=== PATIENT | female | born 1970 | race Caucasian/White ===

== ENCOUNTER → 2018-10-22 12:00 | Outpatient (CLI) | payer OTHER, SELFPAY ==
--- NOTE | 2018-10-22 12:04 | BI_ITS ---
MAMMOGRAPHY - BILATERAL SCREENING REASON FOR EXAM: Female, 48 years old. Routine annual screening examination. PERTINENT HISTORY: Non-contributory. TECHNIQUE: Digital bilateral breast blanco (3D mammographic acquisition) in the CC and MLO projections. 2-D mediolateral oblique (MLO) and craniocaudad (CC) views of both breasts were obtained. CAD: Full Field Digital Mammography with Computer Added Detection was performed. COMPARISON: Comparison is made with prior examination dated May 01, 2010. FINDINGS: Breast Composition: There are scattered areas of fibroglandular density. There are no dominant masses or suspicious calcifications. No other significant abnormalities are identified. There has been no significant change since the prior study. BI/SCREENING MAMM (CAD), BILAT IMPRESSION: Stable bilateral screening mammogram. Yearly follow-up mammogram recommended. (A) ASSESSMENT CATEGORY: BIRADS Category 1: Negative. A letter regarding these results will be sent to the patient by the facility within 30 days. Approximately 10% of breast cancers are not detected by mammography. A normal mammogram should not delay biopsy of a clinically suspicious abnormality. [id number] Electronically Signed: Rosalio Antonio MD at 13:21 EST Tel [phone], Service support ,
--- OUTSIDE RECORDS SUMMARY | 2018-12-17 10:53 | XMS RPT_ITS ---
:1970 Author Organization OHIP Care Team Providers Name Role Phone WILBERT HARRISON DO Primary Care Unavailable WILBERT HARRISON DO Attending Unavailable Teodora Dawson Attending Unavailable Oli Seo Attending Unavailable Wilbert Harrison Referring Unavailable Wilbert Harrison Primary Care Unavailable Wilbert Harrison Attending Unavailable Wilbert Harrison Primary Care Unavailable PROBLEMS PROBLEMS DATE TYPE CONDITION / CODE ATTENDING STATUS SOURCE 07/13/2018 Admitting HyperlipidemiaWILDA DO Active [facility] Diagnosis unspecified / WILBERT Hoyt E78.5(ICD-10) Repository 05/10/2018 Unknown E78.5 - Oli Seo Active [facility] Hyper[facility], Community unspecified / Hospital E78.5(ICD-10) Repository 05/10/2018 Unknown Q21.1 - Atrial MoodispaOli smallwood Active [facility] septal defect / Community Q21.1(ICD-10) Hospital Repository 05/10/2018 Unknown I49.9 - Cardiac Moodispaselin, Oli Active [facility] arrhythmia, Community unspecified / Hospital I49.9(ICD-10) Repository PROCEDURES PROCEDURES No Procedure Records FoundRESULTS RESULTS SCREENING MAMM (CAD), Observed: 10/22/2018 Status: F Source: [facility] BILAT 12:04 PM [facility] REPOSITORY [facility] Imaging Services [address] [place] [address] SCREENING MAMM (CAD), BILAT MR#: [id number] Acct: [id number] Name: MELANY HOLCOMB Rep #: [id number] : 1970 F 48 From: Rosalio Antonio MD PCP: Wilbert Harrison DO Status: REG CLI Study: SCREENING MAMM (CAD), BILAT Date of Exam: 10/22/18 Exam# [id number] Ordering Dr: Wilbert Harrison MD MAMMOGRAPHY - BILATERAL SCREENING REASON FOR EXAM: Female, 48 years old. Routine annual screening examination. PERTINENT HISTORY: Non-contributory. TECHNIQUE: Digital bilateral breast blanco (3D mammographic acquisition) in the CC and MLO projections. 2-D mediolateral oblique (MLO) and craniocaudad (CC) views of both breasts were obtained. CAD: Full Field Digital Mammography with Computer Added Detection was performed. COMPARISON: Comparison is made with prior examination dated May 01, 2010. FINDINGS: Breast Composition: There are scattered areas of fibroglandular density. There are no dominant masses or suspicious calcifications. No other significant abnormalities are identified. There has been no significant change since the prior study. BI/SCREENING MAMM (CAD), BILAT IMPRESSION: Stable bilateral screening mammogram. Yearly follow-up mammogram recommended. (A) ASSESSMENT CATEGORY: BIRADS Category 1: Negative. A letter regarding these results will be sent to the patient by the facility within 30 days. Approximately 10% of breast cancers are not detected by mammography. A normal mammogram should not delay biopsy of a clinically suspicious abnormality. [id number] Electronically Signed: Rosalio Antonio MD at 13:21 EST Tel [phone], Service support , CC: Wilbert Harrison DO Drug Safety Scientist: Signed LIPID Collected: 07/13/2018 Status: F Source: [address] 9:10 AM [facility] REPOSITORY TYPE CODE TESTS RESULT OUT OF REFERENCE UNITS RANGE LAB CHOL(LOINC 0-200 mg/dL ) Cholesterol High 225 Result Comment: Cholesterol Reference Interval: Less than 200 Desirable 200-239 Borderline high risk 240 and above High risk LAB TRIG(LOINC) 0-150 mg/dL Triglycerides High 170 Result Comment: Triglyceride Reference Interval: Less than 150 Normal 150-199 Borderline high risk 200-499 High risk 500 or higher Very high risk LAB HD(LOINC) 40-60 mg/dL HDL Cholesterol 52 LAB LDL(LOINC) 0-130 mg/dL LDL High Cholesterol 139 Performed By: #### CMP, LIPID, GFR #### [place] [address] CMP Collected: 07/13/2018 Status: F Source: [facility] 9:10 AM [facility] REPOSITORY TYPE CODE TESTS RESULT OUT OF REFERENCE UNITS RANGE LAB GLU(LOINC) 70-105 mg/dL Glucose Level 89 LAB NA(LOINC) 136-145 mmol/L Sodium Level 141 LAB K(LOINC) 3.5-5.1 mmol/L Potassium Level 4.5 LAB CL(LOINC) 98-107 mmol/L Chloride 103 LAB CO2(LOINC) 22-29 mmol/L CO2 29 LAB EBAL(LOINC mEq/L ) Electrolyte Balance 9.0 LAB BUN(LOINC) 7-18 mg/dL BUN 12 LAB CRE(LOINC) 0.55-1.02 mg/dL Creatinine Lvl (s) 1.02 LAB BC(LOINC) 7-27 ratio BUN/Creatinine 12 Ratio LAB CA(LOINC) 8.4-10.2 mg/dL Calcium Lvl 9.7 LAB PROT(LOINC 6.4-8.2 G/dL ) Total Protein 7.4 LAB ALB(LOINC) 3.5-5.0 G/dL Albumin Level 4.2 LAB GLB(LOINC) G/dL Globulin 3.2 LAB AG(LOINC) 1.1-2.5 ratio A/G Ratio 1.3 LAB BILT(LOINC 0.2-1.0 mg/dL ) Bili Total 0.6 LAB AP(LOINC) 40-135 U/L Alk Phos 76 LAB AST(LOINC) 10-40 U/L AST/SGOT 19 LAB ALT(LOINC) 10-35 U/L ALT/SGPT 30 Performed By: #### CMP, LIPID, GFR #### [address] [address] .GFR Collected: 07/13/2018 Status: F Source: [facility] 9:10 AM [facility] REPOSITORY TYPE CODE TESTS RESULT OUT OF REFERENCE UNITS RANGE LAB GFRAA(LOINC ml/min/1.73 ) sqm GFR 70 Nauruan Result Comment: GFR Population mean for , Non- Americans Ages 20-29 = 116 mL/min/1.73 sq.m. Ages 30-39 = 107 mL/min/1.73 sq.m. Ages 40-49 = 99 mL/min/1.73 sq.m. Ages 50-59 = 93 mL/min/1.73 sq.m. Ages 60-69 = 85 mL/min/1.73 sq.m. Ages 70+ = 75 mL/min/1.73 sq.m. Chronic Kidney Disease: Less than 60 mL/min/1.73 square meters End Stage Renal Disease: Less than 15 mL/min/1.73 square meters LAB GFRNO(LOINC) ml/min/1.73sqm GFR Non- 58 Result Comment: GFR Population mean for , Non- Americans Ages 20-29 = 116 mL/min/1.73 sq.m. Ages 30-39 = 107 mL/min/1.73 sq.m. Ages 40-49 = 99 mL/min/1.73 sq.m. Ages 50-59 = 93 mL/min/1.73 sq.m. Ages 60-69 = 85 mL/min/1.73 sq.m. Ages 70+ = 75 mL/min/1.73 sq.m. Chronic Kidney Disease: Less than 60 mL/min/1.73 square meters End Stage Renal Disease: Less than 15 mL/min/1.73 square meters Performed By: #### CMP, LIPID, GFR #### [address] [address] CARDIOLOGY VISIT Observed: 05/10/2018 Status: F Source: [facility] REPORT 10:38 AM [facility] REPOSITORY [facility] [address] [place] [address] OFFICE VISIT Date of Service: 05/10/18 MR#: [id number] Acct: [id number] Name: MELANY HOLCOMB Rep #: [id number] : 1970 Provider: Oli Seo MD Age/Sex: 47/F Location: [facility] Status: Signed HPI HPI Details: MELANY HOLCOMB, is a 47 F who presents to the office today for for outpatient cardiovascular follow-up. Since her visit of approximately 1 year ago she has been doing well. She denies any ongoing symptoms of classic angina pectoris or episodes of CHF or pulmonary edema. There has been no palpitations or rapid rates. There has been no near syncope or syncope. She has not required any additional cardiovascular diagnostic studies. Her last lipid labs were in April 2017. Intake Vital Signs05/10/18 Height 5 ft 1 in 05/10/18 Weight: 147 lb 05/10/18 Body Mass Index (BMI) 27.8 05/10/18 Blood Pressure 106/82 Intake Visit Reasons: 1 Y FU Allergies NAROTICS Adverse Reaction (Uncoded 05/10/18 10:04) Other Medications aspirin 81 mg tablet,delayed release 81 mg PO QDAY 05/06/18 [History Confirmed 05/10/18] dextromethorphan 20 mg-quinidine 10 mg capsule 1 cap PO Q12H 05/06/18 [History Confirmed 05/10/18] spironolactone 50 mg tablet 50 mg PO QDAY 05/06/18 [History Confirmed 05/10/18] PFSH Medical History Patent foramen ovale (Chronic) Cardiac arrhythmia (Acute) Hyperlipidemia (Chronic) CVA (cerebral vascular accident) (Acute) Syncope (Acute) Atrial septal defect (Inactive) Surgical History History of cholecystectomy (Resolved) Family History Father Diabetes Hypertension Social History Smoking Status: Former smoker ROS Const Const: Negative for fatigue, weakness, weight gain, weight loss, frequent falls or excessive sweating Eyes Eyes: Negative for change in vision, blurry vision or transient loss of vision ENT ENT: Positive for balance problems (from previous stroke); negative for dizziness Cardio Chest Pain: No Palpitations: No Edema: None Muscle aches with walking: None Resp Respiratory: Negative for SOB with activity or SOB at rest GI GI: Negative vomiting or vomiting blood/hematemesis : Negative for hematuria Musc Musc: Positive for balance problems (from previous stroke); negative for muscle aches/ myalgia, muscle weakness or joint pain Skin Skin: Negative non-healing lesions or rash Neuro Neuro: Negative for weakness, blurry vision, dizziness, lightheadedness, frequent falls or orthostatic symptoms Filiberto Hematologic/Lymphatic: Negative for easy bleeding Endo Endo: Negative for fatigue or excessive sweating Psych Psych: Negative for anxiety or depression Allergy Allergy/Immunology: Negative for hives, Negative for rash Cardiology Exam Const Appearance: cooperative, healthy appearing, comfortable, no acute distress, well developed and well groomed Nutritional Appearance: average body habitus Orientation: awake and oriented x3 Head Head: normal to inspection Ears: hearing grossly normal bilaterally Nose: external nose normal Face and Sinus: face symmetric Mouth: oral mucosae normal Teeth and gingiva: fair dentition Eyes Eyelids: eyelids normal Conjunctivae: conjunctivae normal Neck Neck: normal visual inspection and full ROM Carotids: normal carotid upstroke Chest Chest inspection: normal inspection of the chest and symmetric chest movement Auscultation: Bilateral: Clear to Auscultation Cardio Palpation: normal PMI Rhythm: regular rhythm Heart sounds: S1 normal and S2 normal GI GI: normal to inspection, bowel sounds present, soft and no hepatosplenomegaly Neuro General: alert, awake, oriented x3 and moves all extremities Skin Skin: no rashes or lesions noted Extremities Pulses: Normal: Right Radial Pulse, Left Radial Pulse Lower Extremity Edema: None: Bilateral Psych Psychological: normal affect Supplemental Info Echocardiogram from 05/24/2013: InterpretatijMrnary The study was technically difficult. Left ventricular systolic function is hyperdynamic. The estimated ejection fraction is 75 %. Trivial mitral valve insufficiency, Positive agitated saline contrast study for a nght to left interatrial shunt clw a PFO vs. ASD. No obvious intracardiac mass lesion I thrombus identified. Consider further evaluation for cardiac source of embolus with DANIEL if clinically indicated. Echocardiogram from 05/30/2013: Interpretation Summary Normal LV size. Left ventricular systolic function is normal. The estimated ejection fraction is 65 %. No regional wall motion abnormalities noted Transesophageal echocardiogram 05/25/2013: Normal LV size. Left ventricular systolic function is normal. The estimated election fraction is 60 %. No thrombus is detected in the left atrial appendage. [facility] cerebral angiogram 02/27/2014: IMPRESSION: 1. There is a 65 Io stenosis of the proximal internal carotid artery with a 1.61 mm residual lumen over a 2.0 mm length. 2. 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 3. 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 The ieft AICA/PICA is overall diminished in size. Event monitor 07/03/2013: During the 30 day monitoring period the basic rhythm was SInUS arrhythmia with an intermittent wandering pacemaker with rates from 62-92 bpm. One Pac was noted. Rare PVC s were noted. Patient symptoms of Dizziness/Lightheaded correlated with Sinus bradyarrhythmia and Sinus arrhythmia with a wandering pacemaker. Assessment AND Plan 1. Patent foramen ovale Q21.1 Plan She does have a history of a PFO. She appears to be without any acute cardiovascular issues or concerns at this time. She is going to continue her current medical management and follow-up. 2. Cardiac arrhythmia I49.9 Plan She does have a history of concerns of previous cardiac dysrhythmia with a wondering atrial pacemaker/ectopic atrial rhythm as well as an episode of an idioventricular rhythm. She has been evaluated in the past as noted above. She continues to be followed. She has had no acute events. 3. Hyperlipidemia E78.5 Plan Her lipid history was reviewed. She will be scheduled for future upcoming lipid labs. Orders Orders: Plan Detail Additional Comments Otherwise she will be scheduled for an outpatient visit approximately 1 year unless needed sooner. Thank you for allowing me to participate in the care of your patient. Please don't hesitate to call if any issues arise. This note was generated using a voice recognition system and there may be incorrect words, spelling or punctuation that were not noted when reviewing the office note prior to saving. Follow Up 1 Year (PF) Coding Level of Care Code Off vis,est,level 4 Diagnoses Patent foramen ovale Q21.1 Cardiac arrhythmia I49.9 Hyperlipidemia E78.5 Coding Level of Care Code Off vis,est,level 4 Diagnoses Patent foramen ovale Q21.1 Cardiac arrhythmia I49.9 Hyperlipidemia E78.5 06/18/18 1038 <Electronically signed by Oli Seo MD> Date Oli Seo MD Cosigner Signature: Date (if applicable) CC: Wilbert Harrison DO ALLERGIES ALLERGIES DATE TYPE / CODE NAME / CODE REACTION SEVERITY SOURCE 05/10/2018 Miscellaneous NAROTICS Other Unknown [facility]/[id number]([facility] [place]) Hospital Repository ENCOUNTERS ENCOUNTERS ADMIT/DISCHARGE ACCOUNT NUMBER ADMITTING ENCOUNTER LOCATION SOURCE CLASS 10/22/2018 [id number] [facility] Rep[facility] 07/13/2018/07/17/20 [id number] Ambulatory [address] ding:DROP [facility] Repository 05/10/2018/05/10/20 [id number] Ambulatory BMSBuilding: [facility] 18 [facility] Repository 05/06/2018 [id number] Ambulatory BMSBuilding: [facility] Repository PAYERS PAYERS ENCOUNTER GUARANTOR PAYER SUBSCRIBER SOURCE 10/22/2018 MELANY Wright [id number] Insurance:MEDICAL [place] [id number] Number: Repository [id number]: [phone] [id number] [phone] () Date:[id number] [id number]: 10/22/2018 Secondary NOT GIVENUNK [facility] Insurance:SELF PAY [facility] Number: Effective Repository Date:2018-09-10 07/13/2018 [facility]:MEDICAL JRDOB: [facility] [address] [id number] Repository [place] Number: [facility] [place] [id number] [facility] [place] [address]Pxa: [phone]) Date:2018-07-13 [id number]: () [id number] [phone] Name:HIRAM CRYSTAL ()Tel: [phone], [place] [address] () [id number]: 05/10/2018 MELANY WILKES Primary LAUREN Wright [address] [place] Insurance[facility] [id number] Hospital [address]Msq: [phone]) Number: Repository [phone] () [id number] Date:1144-83-25GR [address] [place] [id number]: 05/10/2018 Secondary NOT GIVENUNK [facility] Insurance:SELF PAY [facility] Number: Effective Repository Date:2017-11-12 05/06/2018 Melany Quintero24 Primary LAUREN [address] [place] Insurance:[facility]ICAL [facility] [place] [id number] Hospital [address]Zph: [phone]) Number: Repository [phone] () [id number] Date:[id number] [phone]: 05/06/2018 Secondary NOT GIVENUNK [facility] Insurance:SELF PAY [facility] Number: Effective Repository Date:2018-05-06
== END ==
PROVIDERS: Family Provider Family Medicine; PCP Family Medicine; Visit Provider Family Medicine
DX: Z12.31 Encounter for screening mammogram for malignant neoplasm of breast (principal)
CPT/HCPCS: 77063; 77067

== ENCOUNTER → 2019-10-25 09:18 | Outpatient (CLI) | payer OTHER, SELFPAY ==
[2019-06-08 15:37] VITALS: BMI 28.1
--- NOTE | 2019-10-25 09:20 | BI_ITS ---
MAMMOGRAPHY - BILATERAL SCREENING REASON FOR EXAM: Female, 49 years old. Routine annual screening examination. PERTINENT HISTORY: Non-contributory. TECHNIQUE: Digital bilateral breast shay (3D mammographic acquisition) in the CC and MLO projections. 2-D mediolateral oblique (MLO) and craniocaudad (CC) views of both breasts were obtained. CAD: Full Field Digital Mammography with Computer Added Detection was performed. COMPARISON: Comparison is made with prior study dated October 22, 2018 and May 09, 2010. FINDINGS: Breast Composition: There are scattered areas of fibroglandular density. There are no dominant masses or suspicious calcifications. No other significant abnormalities are identified. There has been no significant change since the prior study. BI/SCREEN MAMM (CAD) W/SHAY BILAT IMPRESSION: Stable bilateral screening mammogram. Yearly follow-up mammogram recommended. (A) ASSESSMENT CATEGORY: BIRADS Category 1: Negative. A letter regarding these results will be sent to the patient by the facility within 30 days. Approximately 10% of breast cancers are not detected by mammography. A normal mammogram should not delay biopsy of a clinically suspicious abnormality. [id number] Electronically Signed: Rosalio Antonio, at 10:57 EST , Service support ,
== END ==
PROVIDERS: Family Provider Family Medicine; PCP Family Medicine; Referring Provider Family Medicine; Visit Provider Family Medicine
DX: Z12.31 Encounter for screening mammogram for malignant neoplasm of breast (principal)
CPT/HCPCS: 77063; 77067

== ENCOUNTER → 2021-02-20 11:14 | Outpatient (CLI) | payer OTHER, SELFPAY ==
[2020-06-11 14:45] VITALS: BMI 28.7
--- NOTE | 2021-02-20 11:17 | BI_ITS ---
MAMMOGRAPHY - BILATERAL SCREENING REASON FOR EXAM: Female, 50 years old. Routine annual screening examination. PERTINENT HISTORY: Non-contributory. TECHNIQUE: Digital bilateral breast shay (3D mammographic acquisition) in the CC and MLO projections. 2-D mediolateral oblique (MLO) and craniocaudad (CC) views of both breasts were obtained. CAD: Full Field Digital Mammography with Computer Added Detection was performed. COMPARISON: Comparison is made with prior study dated 10/25/2019 and 10/22/2018. FINDINGS: Breast Composition: There are scattered areas of fibroglandular density. There are no dominant masses or suspicious calcifications. No other significant abnormalities are identified. There has been no significant change since the prior study. BI/SCRN MAMM (CAD)W/SHAY BILAT IMPRESSION: Stable bilateral screening mammogram. Yearly follow-up mammogram recommended. (A) ASSESSMENT CATEGORY: BIRADS Category 1: Negative. A letter regarding these results will be sent to the patient by the facility within 30 days. Approximately 10% of breast cancers are not detected by mammography. A normal mammogram should not delay biopsy of a clinically suspicious abnormality. [id number] Electronically Signed: Rosalio Antonio MD at 12:45 EDT , Service support ,
== END ==
PROVIDERS: PCP Family Medicine; Referring Provider Family Medicine; Visit Provider Family Medicine
DX: Z00.00 Encounter for general adult medical examination without abnormal findings (principal); Z12.31 Encounter for screening mammogram for malignant neoplasm of breast
CPT/HCPCS: 77063; 77067

== ENCOUNTER 2025-11-16 04:01 | Emergency (ER) | payer OTHER, SELFPAY ==
[2025-11-16 04:04] VITALS: BP 109/66; PULSE 82; RESP 14; TEMP 36.6; O2SAT 97; BMI 28.4
--- OUTSIDE RECORDS SUMMARY | 2025-11-16 04:28 | XMS RPT_ITS | CCD ---
Author Organization [facility] Care Team Providers Care [place] Cleaner Name Role Phone DeFinis, Harumi Y Unavailable Unavailable SHARON DANIELHAMMAD S Unavailable Unavailable AURY JEFFERS ([facility]) Unavailable Unavailable JORGE DANIEL S Unavailable Unavailable Oli Seo MD Unavailable Mihir Elkins Unavailable Unavailable WILBERT JAIN DO Primary Care Physician [phone] Wilbert Jain Referring Unavailable Wilbert Jain Primary Care Unavailable Oli Seo Unavailable WILBERT JAIN DO Primary Care Unavailable WILBERT JAIN DO Attending Unavailable WILBERT JAIN DO Attending Unavailable WILBERT JAIN DO Primary Care Unavailable WILBERT JAIN DO Primary Care Physician WILBERT JAIN DO Attending Unavailable WILBERT JAIN DO Primary Care Unavailable WILBERT JAIN DO Primary Care Unavailable WILBERT JAIN DO Attending Unavailable Allergies Allergy Classification Reported Allergen(s) Allergy Type Date of Onset Reaction(s) Facility (8 sources) meperidine; Translations: [Meperidine] drug allergy 3 Nausea (finding) [facility] Work Phone: (1 source) Acetaminophen / HYDROcodone; Translations: [HYDROCODONE-ACET AMINOPHEN] Drug Allergy 3 [facility] Repository (1 source) Acetaminophen / oxyCODONE; Translations: [OXYCODONE-ACETAM INOPHEN] Drug Allergy 3 [facility] Repository (1 source) Meperidine; Translations: [MEPERIDINE (PF)] Drug Allergy 6 [facility] Repository (1 source) NAROTICS; Translations: [NAROTICS] Propensity to adverse reactions (disorder) 1 [facility] Repository Medications Current Medications Medication Drug Class(es) Dates Sig (Normalized) Sig (Original) aspirin 81 mg chewable tablet (14 sources) Platelet Aggregation Inhibitor, Nonsteroidal Anti-inflammatory Drug Start: 10-08-2023 aspirin 81 mg oral tablet, chewable Dose : 81 mg = 1 tab(s), Oral, qDay, # 90 tab(s), 3 Refill(s), Pharmacy: [id number], CVA (cerebrovascular accident), 155.7, cm, 10/08/23 10:02:00 EST, Height, kg, 10/08/23 10:02:00 EST, Dosing Weight Start Date: 10/08/23 Status: Ordered Quantity: 90.0 Unit: tab(s) Repeat number: 4 Indication: Cerebral infarction, unspecified Start: 03-12-2022 aspirin 81 mg oral tablet, chewable Dose : 81 mg = 1 tab(s), Oral, Daily, # 30 tab(s), 0 Refill(s) Start Date: 03/12/22 Status: Ordered Start: 04-26-2014 take 1 tablet by naida th once daily ASPIRIN 325 MG TABS One tablet by mouth daily ASPIRIN [id number] Oli Seo MD Start: 04-26-2014 take 1 tablet by naida th once daily ASPIRIN 81 MG TABS One tablet by mouth daily ASPIRIN [id number] Oli Seo MD Start: 04-26-2014 take 1 tablet by naida th once daily ASPIRIN 81 MG TABS One tablet by mouth daily ASPIRIN [id number] Oli Seo MD Start: 04-26-2014 take 1 tablet by naida th once daily ASPIRIN EC 81 MG TBEC One tablet by mouth daily ASPIRIN [id number] Mihir Elkins dextromethorphan hydrobromide 20 mg / quiNIDine sulfate 10 mg oral capsule (8 sources) Antiarrhythmic, Uncompetitive V-ccikrq-S-aspartate Receptor Antagonist, Cytochrome P450 2D6 Inhibitor, Sigma-1 Agonist Start: 11-30-2024 End: 11-25-2025 take 1 capsule by mouth three times daily, then take 1 capsule by mouth three times daily Nuedexta 20 mg-10 mg oral capsule Dose = 1 cap(s), Oral, TID, TAKE 1 CAPSULE BY MOUTH THREE TIMES A DAY - medically necessary only medication for pseudobulbar affect, # 90 cap(s), 11 Refill(s), Pharmacy: [id number], Pseudobulbar affect, 156, cm, 11/30/24 10:46:00 EST, Height, kg, 11/30/24 10:46:00 EST, Dosing Weight Start Date: 11/30/24 Stop Date: 11/25/25 Status: Ordered Quantity: 90.0 Unit: cap(s) Repeat number: 12 Indication: Pseudobulbar affect Start: 09-25-2022 End: 09-20-2023 take 1 capsule by mouth three times daily, then take 1 capsule by mouth three times daily Nuedexta 20 mg-10 mg oral capsule Dose = 1 cap(s), Oral, TID, TAKE 1 CAPSULE BY MOUTH THREE TIMES A DAY - medically necessary only medication for pseudobulbar affect, # 90 cap(s), 11 Refill(s), Pharmacy: [facility]/pharmacy #[id number], Pseudobulbar affect, 157.5, cm, 09/25/22 9:02:00 EDT, Height,... Start Date: 09/25/22 Stop Date: 09/20/23 Status: Ordered Start: 09-18-2021 End: 09-13-2022 take 1 capsule by mouth three times daily, then take 1 capsule by mouth three times daily Nuedexta 20 mg-10 mg oral capsule Dose = 1 cap(s), Oral, TID, TAKE 1 CAPSULE BY MOUTH THREE TIMES A DAY - medically necessary only medication for pseudobulbar affect, # 90 cap(s), 11 Refill(s), Pharmacy: [facility]/pharmacy #[id number], Pseudobulbar affect, 158.5, cm, 09/18/21 13:27:00 EDT, Height... Start Date: 09/18/21 Stop Date: 09/13/22 Status: Ordered Start: 04-26-2014 take 1 tablet by naida twice daily NUEDEXTA CAPS One tablet by mouth twice daily DEXTROMETHORPHAN-QUINIDINE CAPS [id number] Oli Seo MD levothyroxine sodium 0.025 mg oral tablet (2 sources) l-Thyroxine Start: 02-27-2021 levothyroxine 25 mcg (0.025 mg) oral tablet Dose : 25 mcg = 1 tab(s), Oral, qDay, # 90 tab(s), 3 Refill(s), Pharmacy: [facility]/pharmacy #[id number], Hypothyroidism, 157, cm, 12/12/20 13:40:00 EST, Height, kg, 12/12/20 13:40:00 EST, Dosing Weight Start Date: 02/27/21 Status: Ordered rOPINIRole 0.25 mg oral tablet (3 sources) Nonergot Dopamine Agonist Start: 03-12-2022 rOPINIRole 0.25 mg o ral tablet Dose : 0.25 mg = 1 tab(s), Oral, TID, # 90 tab(s), 1 Refill(s), [id number], Spasticity due to old stroke, 156.5, cm, 03/12/22 13:50:00 EDT, Height Start Date: 03/12/22 Status: Ordered rosuvastatin calcium 10 mg oral tablet (5 sources) HMG-CoA Reductase Inhibitor Start: 11-30-2024 rosuvastatin 10 mg o ral tablet Dose : 10 mg = 1 tab(s), Oral, qDay, TAKE 1 TABLET BY MOUTH EVERYDAY AT BEDTIME, # 100 tab(s), 1 Refill(s), Pharmacy: [facility] #[id number], Hyperlipidemia, 156, cm, 11/30/24 10:46:00 EST, Height, kg, 11/30/24 10:46:00 EST, Dosing Weight Start Date: 11/30/24 Status: Ordered Quantity: 100.0 Unit: tab(s) Repeat number: 2 Indication: Hyperlipidemia, unspecified Start: 03-12-2022 rosuvastatin 1 0 mg oral tablet Dose : 10 mg = 1 tab(s), Oral, qDay, TAKE 1 TABLET BY MOUTH EVERYDAY AT BEDTIME, # 90 tab(s), 3 Refill(s), Pharmacy: [facility]/pharmacy #[id number], Hyperlipidemia, 156.5, cm, 03/12/22 13:50:00 EDT, Height, kg, 03/12/22 13:50:00 EDT, Dosing Weight Start Date: 03/12/22 Status: Ordered spironolactone 50 mg oral tablet (8 sources) Aldosterone Antagonist Start: 11-30-2024 spironolactone 50 mg oral tablet Dose : 50 mg = 1 tab(s), Oral, Daily, # 90 tab(s), 1 Refill(s), Pharmacy: [id number], Bilateral lower extremity edema, 156, cm, 11/30/24 10:46:00 EST, Height, kg, 11/30/24 10:46:00 EST, Dosing Weight Start Date: 11/30/24 Status: Ordered Quantity: 90.0 Unit: tab(s) Repeat number: 2 Indication: Localized edema Start: 03-12-2022 spironolactone 50 mg oral tablet Dose : 50 mg = 1 tab(s), Oral, Daily, # 90 tab(s), 3 Refill(s), Pharmacy: [facility]/pharmacy #[id number], 156.5, cm, 03/12/22 13:50:00 EDT, Height, kg, 03/12/22 13:50:00 EDT, Dosing Weight Start Date: 03/12/22 Status: Ordered Start: 05-02-2015 take 1 tablet by naida th once daily SPIRONOLACTONE 50 MG TABS One tablet by mouth daily SPIRONOLACTONE [id number] Oli Seo MD Vitamin D2 1.25 mg (50,000 intl units) oral capsule (3 sources) Start: 03-12-2022 End: 03-07-2023 Vitamin D2 1.25 mg (50,000 i ntl units) oral capsule Dose : 50,000 International_Unit = 1 cap(s), Oral, qWeek, # 13 cap(s), 3 Refill(s), Pharmacy: [facility]/pharmacy #[id number], Vitamin D deficiency, 156.5, cm, 03/12/22 13:50:00 EDT, Height, kg, 03/12/22 13:50:00 EDT, Dosing Weight Start Date: 03/12/22 Stop Date: 03/07/23 Status: Ordered Completed/Discontinued Medications Medication Drug Class(es) Dates Sig (Normalized) Sig (Original) atorvastatin 20 mg oral tablet (12 sources) HMG-CoA Reductase Inhibitor Start: 07-06-2013 End: 05-11-2017 take 1 tablet by mouth every other day ATORVASTATIN CALCIUM 20 MG TABS One tablet by mouth every other day ATORVASTATIN CALCIUM [id number] Oli Seo MD Start: 07-06-2013 take 1 tablet by naida once daily ATORVASTATIN CALCIUM 40 MG TABS One tablet by mouth daily ATORVASTATIN CALCIUM [id number] Teodora Pearl PA-C citalopram 10 mg oral tablet (6 sources) Serotonin Reuptake Inhibitor Start: 07-06-2013 End: 11-03-2013 take 1 tablet by mouth once daily CITALOPRAM HYDROBROMIDE 10 MG TABS One tablet by mouth daily CITALOPRAM HYDROBROMIDE [id number] Yasmine Randolph RN pantoprazole 20 mg delayed release oral tablet (6 sources) Proton Pump Inhibitor Start: 07-06-2013 End: 05-02-2015 take 1 tablet by mouth once daily PROTONIX 20 MG TBEC One tablet by mouth daily PANTOPRAZOLE SODIUM [id number] Oli Seo MD pregabalin 50 mg oral capsule (6 sources) Start: 07-06-2013 End: 04-26-2014 take 1 tablet by mouth three times daily LYRICA 50 MG CAPS One tablet by mouth three times daily PREGABALIN [id number] Yasmine Randolph RN vitamin b12 1 mg/ml injectable solution (1 source) Vitamin B12 Start: 03-20-2022 inject 1 mL by intramuscular injection every month cyanocobalamin 1000 mcg/mL injectable solution Dose : 1,000 mcg = 1 mL, Intramuscular, qmonth, to be given IN PCP OFFICE every month - standing order, not sent in., # 1 mL, 11 Refill(s), other reason (Rx), Vitamin B 12 deficiency Fatigue Start Date: 03/20/22 Status: Ordered warfarin sodium 2.5 mg oral tablet (20 sources) Vitamin K Antagonist Start: 12-30-2013 End: 04-26-2014 COUMADIN 2 MG TABS 5 mg x 5 days, 4.5 mg x 2 days (patient uses 2.5 and 2 mg tablets to achieve dosing) WARFARIN SODIUM [id number] Oli Seo MD Start: 12-30-2013 End: 04-26-2014 COUMADIN 2.5 MG TABS 5 mg x 5 days, 4.5 mg x 2 days (patient uses 2.5 and 2 mg tablets to achieve dosing) WARFARIN SODIUM [id number] Oli Seo MD Start: 07-11-2013 COUMADIN 2.5 M G TABS Take as directed - current dose 4.5 mg x 4 days, 4 mg x 3 days WARFARIN SODIUM [id number] Yasmine Randolph RN Start: 07-06-2013 COUMADIN 2 MG TABS Take as directed WARFARIN SODIUM [id number] Yasmine Randolph RN Start: 07-06-2013 COUMADIN 2.5 M G TABS Take as directed - current dose 4.5 mg daily WARFARIN SODIUM [id number] Yasmine Randolph RN Problems Active Problems Problem Classification Problem Date Documented Date Episodic/Chronic Acute cerebrovascular disease (5 sources) Cerebrovascular accident; Translations: [Cerebral infarction, unspecified] Onset: 07-06-2013 07-06-2013 Chronic Aortic; peripheral; and visceral artery aneurysms (2 sources) 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 Cardiac and circulatory congenital anomalies (5 sources) Atrial septal defect; Translations: [Patent foramen ovale] Onset: 07-06-2013 07-06-2013 Chronic Conduction disorders (3 sources) Conduction disorder of the heart; Translations: [Cardiac arrhythmia, unspecified] Onset: 07-06-2013 07-06-2013 Chronic Delirium, dementia, and amnestic and other cognitive disorders (5 sources) Pseudobulbar affect 01-31-2020 Chronic Disorders of lipid metabolism (8 sources) Hyperlipidemia; Translations: [Hyperlipidemia, unspecified] Onset: 11-03-2013 11-03-2013 Chronic Late effects of cerebrovascular disease (5 sources) Spasticity as sequela of stroke 03-12-2022 Chronic Malaise and fatigue (5 sources) Fatigue 01-31-2020 Episodic Nutritional deficiencies (5 sources) Vitamin D deficiency 01-31-2020 Chronic Occlusion or stenosis of precerebral arteries (1 source) Occlusion and stenosis of unspecified carotid artery; Translations: [Occlusion and stenosis of unspecified carotid artery] Onset: 05-10-2015 Chronic Other circulatory disease (2 sources) History of cerebrovascular accident with residual deficit 11-30-2024 Episodic Other circulatory disease (2 sources) History of dissection of carotid artery 11-30-2024 Episodic Other connective tissue disease (5 sources) Muscle weakness 12-02-2019 Episodic Other female genital disorders (2 sources) Vaginal dryness 04-07-2023 Episodic Other non-traumatic joint disorders (5 sources) Multiple joint pain 12-12-2020 Episodic Other nutritional; endocrine; and metabolic disorders (4 sources) Body mass index (BMI) 31.0-31.9, adult; Translations: [Body mass index (BMI) 30.0-30.9, adult] Onset: 11-03-2013 11-03-2013 Chronic Other nutritional; endocrine; and metabolic disorders (2 sources) Body mass index (BMI) 30.0-30.9, adult; Translations: [Body mass index (BMI) 30.0-30.9, adult] Onset: 11-03-2013 05-02-2015 Chronic Other nutritional; endocrine; and metabolic disorders (2 sources) Overweight in adulthood with body mass index of 25 or more but less than 30 11-30-2024 Episodic Other screening for suspected conditions (not mental disorders or infectious disease) (7 sources) Viral screening status; Translations: [Encounter for screening mammogram for malignant neoplasm of breast] Onset: 10-28-2023 03-12-2022 Episodic Residual codes; unclassified (5 sources) Needs influenza immunization 09-14-2020 Episodic Residual codes; unclassified (5 sources) Requires diphtheria, tetanus and pertussis vaccination 08-17-2019 Episodic Residual codes; unclassified (2 sources) Bilateral lower limb edema 04-07-2023 Episodic Residual codes; unclassified (2 sources) Insomnia 04-07-2023 Episodic Residual codes; unclassified (2 sources) Screening due 10-08-2023 Episodic Screening and history of mental health and substance abuse codes (2 sources) Ex-tobacco user 04-06-2023 Episodic Thyroid disorders (3 sources) Hypothyroidism 01-31-2020 Chronic Unclassified (3 sources) Long-term drug therapy; Translations: [Long-term (current) use of other medications] Onset: 12-13-2013 12-13-2013 Unclassified (5 sources) Cancer cervix screening status 09-14-2020 Unclassified (20 sources) Patient encounter status 08-17-2019 Past or Other Problems Problem Classification Problem Date Documented Da te Episodic/Chronic Other aftercare (2 sources) Other rn long term care (current) drug therapy; Translations: [Long-term (current) use of other medications] Onset: 12-13-2013 05-13-2017 Episodic Other nutritional; endocrine; and metabolic disorders (6 sources) Body mass index (BMI) 29.0-29.9, adult; Translations: [Body mass index (BMI) 27.0-27.9, adult] Onset: 11-03-2013 Resolved: 05-11-2017 04-26-2014 Episodic Other nutritional; endocrine; and metabolic disorders (4 sources) Body mass index (BMI) 27.0-27.9, adult; Translations: [Body mass index (BMI) 27.0-27.9, adult] Onset: 11-03-2013 Resolved: 05-11-2017 05-12-2016 Episodic Other nutritional; endocrine; and metabolic disorders (2 sources) Body mass index (BMI) 28.0-28.9, adult; Translations: [Body mass index (BMI) 28.0-28.9, adult] Onset: 05-11-2017 05-11-2017 Episodic Residual codes; unclassified (3 sources) FH: Hypertension; Translations: [Family history of ischemic heart disease and other diseases of the circulatory system] 05-02-2015 Episodic Syncope (3 sources) Syncope; Translations: [Syncope and collapse] Onset: 07-06-2013 07-06-2013 Episodic Results Test Name Value Interpretation Reference Range Facility .GFRon 01-09-2025 Estimated Glomerular Filtration Rate 59 ml/min/1.73sqm Normal [facility] Comment on above: Result Comment: Stages of Chronic Kidney Disease (CKD) Stage Description eGFR(ml/min/1.73 sq.m.) CKD 1 Normal kidney function or >=90 normal kindney function with possible kidney damage (ex. Proteinuria) CKD 2 Kidney damage with mild loss 60-89 of kidney function CKD 3a Mild to moderate loss of kidney 45-59 function CKD 3b Moderate to severe loss of 30-44 of kindey function CKD 4 Severe loss of kidney function 15-29 CKD 5 Kidney failure <15 Note: (go live 2024) the eGFR calculation was updated to the 2020 CKD-EPI creatinine equation without a race factor to calculate the eGFR results. Performed By: #### L IPID, TSH, VIDH, GFR, CMP #### [address] [address] CMPon 01-09-2025 Albumin Level 4.2 G/dL Normal 3.5-5.0 [facility] Comment on above: Performed By: #### L IPID, TSH, VIDH, GFR, CMP #### [address] [address] Albumin/Globulin [Mass ratio] 1.3 {ratio} Normal 1.1-2.5 [facility] Comment on above: Performed By: #### L IPID, TSH, VIDH, GFR, CMP #### [address] [address] ALP [Catalytic activity/Vol] 87 U/L Normal 40-135 [facility] Comment on above: Performed By: #### L IPID, TSH, VIDH, GFR, CMP #### [address] [address] ALT [Catalytic activity/Vol] 35 U/L Normal 14-59 [facility] Comment on above: Performed By: #### L IPID, TSH, VIDH, GFR, CMP #### [address] [address] AST [Catalytic activity/Vol] 19 U/L Normal 10-40 [facility] Comment on above: Performed By: #### L IPID, TSH, VIDH, GFR, CMP #### [address] [address] Bili Total 0.5 mg/dL Normal 0.2-1.0 [facility] Comment on above: Result Comment: Use of this assay is not recommended for patients undergoing treatment with eltrombopag due to the potential for falsely elevated results. Performed By: #### L IPID, TSH, VIDH, GFR, CMP #### [address] [address] BUN/Creatinine Ratio 14 ratio Normal 7-27 [facility] Comment on above: Performed By: #### L IPID, TSH, VIDH, GFR, CMP #### [address] [address] Calcium [Mass/Vol] 9.5 mg/dL Normal 8.4-10.2 [facility] Comment on above: Performed By: #### L IPID, TSH, VIDH, GFR, CMP #### [address] [address] Chloride [Moles/Vol] 102 mmol/L Normal 98-107 [facility] Comment on above: Performed By: #### L IPID, TSH, VIDH, GFR, CMP #### [place] [address] CO2 [Moles/Vol] 29 mmol/L Normal 22-29 [facility] Comment on above: Performed By: #### L IPID, TSH, VIDH, GFR, CMP #### [place] [address] Creatinine [Mass/Vol] 1.10 mg/dL High 0.55-1.02 [facility] Comment on above: Result Comment: Test ing performed on Siemens Dimension EXL analyzer using a modified kinetic Tristan technique. Performed By: #### L IPID, TSH, VIDH, GFR, CMP #### [place] [address] Electrolyte Balance 8.0 mEq/L Normal 4.0-15.0 [facility] Comment on above: Performed By: #### L IPID, TSH, VIDH, GFR, CMP #### [place] [address] Globulin 3.3 G/dL Normal 1.5-3.8 [facility] Comment on above: Performed By: #### L IPID, TSH, VIDH, GFR, CMP #### [place] [address] Glucose [Mass/Vol] 91 mg/dL Normal 70-105 [facility] Comment on above: Performed By: #### L IPID, TSH, VIDH, GFR, CMP #### [address] [address] Potassium [Moles/Vol] 4.1 mmol/L Normal 3.5-5.1 [facility] Comment on above: Performed By: #### L IPID, TSH, VIDH, GFR, CMP #### [address] [address] Sodium [Moles/Vol] 139 mmol/L Normal 136-145 [facility] Comment on above: Performed By: #### L IPID, TSH, VIDH, GFR, CMP #### [address] [address] Total Protein 7.5 G/dL Normal 6.4-8.2 [facility] Comment on above: Performed By: #### L IPID, TSH, VIDH, GFR, CMP #### [address] [address] Urea nitrogen [Mass/Vol] 15 mg/dL Normal 7-18 [facility] Comment on above: Performed By: #### L IPID, TSH, VIDH, GFR, CMP #### [address] [address] LABORATORYOrdered By: SYSTEM SYSTEM on 01-09-2025 25-hydroxyvitamin D3 [Mass/Vol] 31.1 ng/mL Invalid Interpretation Code AO ADM SS Comment on above: Interpretive Data: I nterpretive Values Based on Total 25(OH) Vitamin D: Deficient <20 ng/mL Insufficient 20 - <30 ng/mL Sufficient 30-100 ng/mL Albumin BCP dye [Mass/Vol] 4.2 G/dL Normal 3.5 - 5.0 G/dL AO ADM SS Albumin/Globulin [Mass ratio] 1.3 {ratio} Normal 1.1 - 2.5 ratio AO ADM SS ALP [Catalytic activity/Vol] 87 U/L Normal 40 - 135 U/L AO ADM SS ALT With P-5'-P [Catalytic activity/Vol] 35 U/L Normal 14 - 59 U/L AO ADM SS AST With P-5'-P [Catalytic activity/Vol] 19 U/L Normal 10 - 40 U/L AO ADM SS Bilirubin [Mass/Vol] 0.5 mg/dL Normal 0.2 - 1.0 mg/dL AO ADM SS Comment on above: Interpretive Data: U se of this assay is not recommended for patients undergoing treatment with eltrombopag due to the potential for falsely elevated results. Calcium [Mass/Vol] 9.5 mg/dL Normal 8.4 - 10. 2 mg/dL AO ADM SS Chloride [Moles/Vol] 102 mmol/L Normal 98 - 107 mmol/L AO ADM SS CO2 [Moles/Vol] 29 mmol/L Normal 22 - 29 mmol/L AO ADM SS Creatinine [Mass/Vol] 1.10 mg/dL High 0.55 - 1.02 mg/dL AO ADM SS Comment on above: Interpretive Data: T esting performed on Siemens Dimension EXL analyzer using a modified kinetic Tristan technique. Electrolyte Balance 8.0 mEq/L Normal 4.0 - 15 .0 mEq/L AO ADM SS Estimated Glomerular Filtration Rate 59 ml/min/1.73sqm Invalid Interpretation Code AO Chemistry S Comment on above: Interpretive Data: Stages of Chronic Kidney Disease (CKD) Stage Description eGFR(ml/min/1.73 sq.m.) CKD 1 Normal kidney function or >=90 normal kindney function with possible kidney damage (ex. Proteinuria) CKD 2 Kidney damage with mild loss 60-89 of kidney function CKD 3a Mild to moderate loss of kidney 45-59 function CKD 3b Moderate to severe loss of 30-44 of kindey function CKD 4 Severe loss of kidney function 15-29 CKD 5 Kidney failure <15 Note: (go live 2024) the eGFR calculation was updated to the 2020 CKD-EPI creatinine equation without a race factor to calculate the eGFR results. Globulin 3.3 G/dL Normal 1.5 - 3.8 G/dL AO ADM SS Glucose [Mass/Vol] 91 mg/dL Normal 70 - 105 mg/dL AO ADM SS Potassium [Moles/Vol] 4.1 mmol/L Normal 3.5 - 5.1 mmol/L AO ADM SS Protein [Mass/Vol] 7.5 G/dL Normal 6.4 - 8.2 G/dL AO ADM SS Sodium [Moles/Vol] 139 mmol/L Normal 136 - 145 mmol/L AO ADM SS TSH Qn 2.18 m[IU]/L Normal 0.36 - 3.74 mcIU/mL AO ADM SS Urea nitrogen [Mass/Vol] 15 mg/dL Normal 7 - 18 mg/dL AO ADM SS Urea nitrogen/Creatinine [Mass ratio] 14 ratio Normal 7 - 27 ratio AO ADM SS LABORATORYOrdered By: Graham Brown on 01-09-2025 Cholesterol [Mass/Vol] 174 mg/dL Normal 0 - 200 mg/dL AO ADM SS Comment on above: Interpretive Data: C holesterol Reference Interval: Less than 200 Desirable 200-239 Borderline high risk 240 and above High risk Cholesterol in HDL [Mass/Vol] 62 mg/dL High 40 - 60 mg/dL AO ADM SS Cholesterol in LDL [Mass/Vol] 85 mg/dL Normal 0 - 130 mg/dL AO ADM SS Triglyceride [Mass/Vol] 137 mg/dL Normal 0 - 150 mg/dL AO ADM SS Comment on above: Interpretive Data: T riglyceride Reference Interval: Less than 150 Normal 150-199 Borderline high risk 200-499 High risk 500 or higher Very high risk LIPIDon 01-09-2025 Cholesterol [Mass/Vol] 174 mg/dL Normal 0-200 [facility] Comment on above: Result Comment: Chol esterol Reference Interval: Less than 200 Desirable 200-239 Borderline high risk 240 and above High risk Performed By: #### L IPID, TSH, VIDH, GFR, CMP #### [address] [address] Cholesterol in HDL [Mass/Vol] 62 mg/dL High 40-60 [facility] Comment on above: Performed By: #### L IPID, TSH, VIDH, GFR, CMP #### [address] [address] Cholesterol in LDL [Mass/Vol] 85 mg/dL Normal 0-130 [facility] Comment on above: Performed By: #### L IPID, TSH, VIDH, GFR, CMP #### [address] [address] Triglyceride [Mass/Vol] 137 mg/dL Normal 0-150 [facility] Comment on above: Result Comment: Trig lyceride Reference Interval: Less than 150 Normal 150-199 Borderline high risk 200-499 High risk 500 or higher Very high risk Performed By: #### L IPID, TSH, VIDH, GFR, CMP #### [place] [address] [place], [place] [address] TSHon 01-09-2025 TSH Qn 2.18 m[IU]/L Normal 0.36-3.74 [facility] Comment on above: Performed By: #### L IPID, TSH, VIDH, GFR, CMP #### [address] [address] VIDHon 01-09-2025 Vit. D 25-Hydroxy 31.1 ng/mL Normal [facility] Comment on above: Result Comment: Inte rpretive Values Based on Total 25(OH) Vitamin D: Deficient <20 ng/mL Insufficient 20 - <30 ng/mL Sufficient 30-100 ng/mL Performed By: #### L IPID, TSH, VIDH, GFR, CMP #### [address] [address] [place] MAMMOGRAM SCREENING BILAT ERAL W/TOMOon 12-14-2024 MA MAMMOGRAM SCREENING BILATERAL W/COSMO ORIGINAL FROM: [address] [address] PROCEDURE FOR: MELANY HOLCOMB [address] [place] [id number] Home: PID#: [id number] Exam#: [id number] : 1970 Age: 54 TO: WILBERT JAIN DO [address] [place] [address] Fax: NO FAX EXAMINATION: SCREENING DIGITAL BILATERAL MAMMOGRAM WITH TOMOSYNTHESIS, 12/14/2024 11:23 am TECHNIQUE: Screening mammography of the bilateral breasts was performed with tomosynthesis. 2D standard and 3D tomosynthesis combination imaging performed through both breasts in the MLO and CC projection. Computer aided detection was utilized in the interpretation of this exam. COMPARISON: 10/28/2023 HISTORY: Breast cancer screening. FINDINGS: BREAST DENSITY: There are scattered areas of fibroglandular density. There is a benign left breast calcification. There are no significant masses or calcifications. IMPRESSION: No mammographic evidence of malignancy. Continued screening with annual mammograms is recommended. Kayla Urena risk calculations, generated with the history provided, report this patient's 10 year risk and lifetime risk for developing breast cancer at 0.9% and 3.0%, respectively. Based on this assessment tool, if the patient's calculated lifetime risk is below 20%, then the patient is considered at average risk for developing breast cancer. If the patient's calculated lifetime risk is at or above 20%, then the patient is considered high risk for developing breast cancer and may be a candidate for supplemental breast MRI screening in addition to annual mammographic screening per the [place] [employer]. BIRADS: BI-RADS: 2: Benign RECALL: 1 year screening RECALL TYPE: mammo LETTER SENT: Normal BI-RADS 1 and 2 Interpreted by: Twan Vicente MD Preliminary Report By: Twan Vicente MD Electronically signed By Twan Vicente MD Dictated Date: 12/14/2024 12:19:25 PM Prelim Date: 12/14/2024 12:33:55 PM Sign Date: 12/14/2024 12:33:55 PM Ordering Provider: WILBERT JAIN Daytime Babysitter: SYD PAZ RT(R)(M)(CT) letter sent: Normal BI-RADS 1 and 2 Mammogram BI-RADS: 2 Benign Normal [facility] MAMMOGRAM SCREENING BILAT ERAL W/TOMOon 10-29-2023 MT MAMMOGRAM SCREENING BILATERAL W/COSMO ORIGINAL FROM: [facility] [address], [place] [address] PROCEDURE FOR: MELANY HOLCOMB [address] [place] [id number] Home: PID#: [id number] Exam#: [id number] : 1970 Age: 53 TO: WILBERT JAIN DO [address] [address] Fax: NO FAX EXAMINATION: SCREENING DIGITAL BILATERAL MAMMOGRAM WITH TOMOSYNTHESIS, 10/28/2023 TECHNIQUE: Screening mammography of the bilateral breasts was performed with tomosynthesis. 2D standard and 3D tomosynthesis combination imaging performed through both breasts in the MLO and CC projection. Computer aided detection was utilized in the interpretation of this exam. COMPARISON: 08/19/2022 HISTORY: Screening. FINDINGS: BREAST DENSITY: Predominantly Fatty There is a benign left breast calcification. There are no significant masses or calcifications. IMPRESSION: No mammographic evidence of malignancy. Continued screening with annual mammograms is recommended. BIRADS: MAMMOGRAM BI-RADS: 2: Benign finding RECALL: 1 year screening RECALL TYPE: mammo LETTER SENT: Normal BI-RADS 1 and 2 Interpreted by: Twan Vicente MD Preliminary Report By: Tawn Vicente MD Electronically signed By Twan Vicente MD Dictated Date: 10/29/2023 10:06:54 AM Prelim Date: 10/29/2023 10:09:24 AM Sign Date: 10/29/2023 10:09:24 AM Ordering Provider: WILBERT JAIN Daytime Babysitter: GIANCARLO BERMEO RT (R) (M) (CT) letter sent: Normal BI-RADS 1 and 2 Mammogram BI-RADS: 2 Benign Normal [facility] ([place] THORAX SCREENING W/O CONT [facility] 10-28-2023 CT THORAX SCREENING W/O CONTRAST ORIGINAL EXAMINATION: LOW DOSE SCREENING CT OF THE CHEST WITHOUT HVRSDZSH13/6/2023 2:14 pm TECHNIQUE: Low dose lung cancer screening CT of the chest was performed without the administration of intravenous contrast. Multiplanar reformatted images are provided for review. Automated exposure control, iterative reconstruction, and/or weight based adjustment of the mA/kV was utilized to reduce the radiation dose to as low as reasonably achievable. COMPARISON: None. HISTORY: 30 pack-year smoking history FINDINGS: The heart is normal in size. Aberrant origin of the right subclavian artery noted. Atherosclerosis seen of the coronary arteries and aorta. The great vessels appear normal in caliber. No lymphadenopathy is visible on this unenhanced exam. Borderline lymph nodes in the AP window measure up to 8 mm in short axis. No suspicious findings seen in the visualized portion of the abdomen. The abdomen is not evaluated in detail. Cholecystectomy clips seen. No pulmonary consolidation is identified. No pneumothorax or pleural effusion.Multifocal areas of scarring visualized. No aggressive osseous lesions visible. Degenerative changes seen in the spine. IMPRESSION: No significant lung nodule. For patients with appropriate lung cancer risk, annual CT screening is recommended. Atherosclerosis with prominent coronary artery calcifications Information below is for Lung nodule tracking purposes: Nodule: NLN Other Findings: P-CAC Change: Na Recall : 1yr scr Recall Type: LDCT LungRads: 1s Interpreted by: Flako Murphy MD Preliminary Report By: Flako Murphy MD Electronically signed By Flako Murphy MD Dictated Date: 10/28/2023 4:41:52 PM Prelim Date: 10/28/2023 4:45:30 PM Sign Date: 10/28/2023 4:45:30 PM Ordering Provider: WILBERT JAIN [facility] ([place]) .GFRon 04-07-2023 GFR 66 ml/min/1.73sqm Normal [facility] [place] Comment on above: Result Comment: GFR Population mean for , [...] 15 mL/min/1.73 square meters Performed By: #### L IPID, MG, GFR, VIDH, CMP, TSH #### [address] [address] #### B12 #### [address] [address] GFR Non- 54 ml/min/1.73sqm Normal [facility] ([place] Comment on above: Result Comment: GFR Population mean for , [...] 15 mL/min/1.73 square meters Performed By: #### L IPID, MG, GFR, VIDH, CMP, TSH #### [address] [address] #### B12 #### [address] [address] B12on 04-07-2023 Cobalamin (Vitamin B12) [Mass/Vol] 449 pg/mL Normal 211-911 [facility] ([place] Comment on above: Performed By: #### L IPID, MG, GFR, VIDH, CMP, TSH #### [address] [address] #### B12 #### [address] [address] CMPon 04-07-2023 Albumin Level 4.3 G/dL Normal 3.5-5.0 [facility] ([place] Comment on above: Performed By: #### L IPID, MG, GFR, VIDH, CMP, TSH #### [address] [address] #### B12 #### [address] [address] Albumin/Globulin [Mass ratio] 1.5 {ratio} Normal 1.1-2.5 [facility] ([place] Comment on above: Performed By: #### L IPID, MG, GFR, VIDH, CMP, TSH #### [address] [address] #### B12 #### [address] [address] ALP [Catalytic activity/Vol] 78 U/L Normal 40-135 [facility] ([place] Comment on above: Performed By: #### L IPID, MG, GFR, VIDH, CMP, TSH #### [place] [address] #### B12 #### [place] [address] ALT [Catalytic activity/Vol] 33 U/L Normal 14-59 [facility] [place] Comment on above: Performed By: #### L IPID, MG, GFR, VIDH, CMP, TSH #### [place] [address] #### B12 #### [place] [address] AST [Catalytic activity/Vol] 20 U/L Normal 10-40 [facility] [place] Comment on above: Performed By: #### L IPID, MG, GFR, VIDH, CMP, TSH #### [place] [address] #### B12 #### [place] [address] Bili Total 0.5 mg/dL Normal 0.2-1.0 [facility] [place] Comment on above: Result Comment: Use of this assay is not recommended for patients undergoing treatment with eltrombopag due to the potential for falsely elevated results. Performed By: #### L IPID, MG, GFR, VIDH, CMP, TSH #### [place] [address] #### B12 #### [place] [address] BUN/Creatinine Ratio 14 ratio Normal 7-27 [facility] [place] Comment on above: Performed By: #### L IPID, MG, GFR, VIDH, CMP, TSH #### [place] [address] #### B12 #### [place] [address] Calcium [Mass/Vol] 9.3 mg/dL Normal 8.4-10.2 [facility] ([place]) Comment on above: Performed By: #### L IPID, MG, GFR, VIDH, CMP, TSH #### [place] [address] #### B12 #### [place] [address] Chloride [Moles/Vol] 105 mmol/L Normal 98-107 [facility] [place] Comment on above: Performed By: #### L IPID, MG, GFR, VIDH, CMP, TSH #### [place] [address] #### B12 #### [place] [address] CO2 [Moles/Vol] 29 mmol/L Normal 22-29 [facility] [place] Comment on above: Performed By: #### L IPID, MG, GFR, VIDH, CMP, TSH #### [place] [address] #### B12 #### [place] [address] Creatinine [Mass/Vol] 1.06 mg/dL High 0.55-1.02 [facility] [place] Comment on above: Performed By: #### L IPID, MG, GFR, VIDH, CMP, TSH #### [place] [address] #### B12 #### [place] [address] Electrolyte Balance 7.0 mEq/L Normal 4.0-15.0 [facility] ([place]) Comment on above: Performed By: #### L IPID, MG, GFR, VIDH, CMP, TSH #### [place] [address] #### B12 #### [place] [address] Globulin 2.8 G/dL Normal [facility] [place] Comment on above: Performed By: #### L IPID, MG, GFR, VIDH, CMP, TSH #### [address] [address] #### B12 #### [address] [address] Glucose [Mass/Vol] 97 mg/dL Normal 70-105 [facility] ([place] Comment on above: Performed By: #### L IPID, MG, GFR, VIDH, CMP, TSH #### [address] [address] #### B12 #### [address] [address] Potassium [Moles/Vol] 4.8 mmol/L Normal 3.5-5.1 [facility] [place] Comment on above: Performed By: #### L IPID, MG, GFR, VIDH, CMP, TSH #### [place] [address] #### B12 #### [address] [address] Sodium [Moles/Vol] 141 mmol/L Normal 136-145 [facility] ([place] Comment on above: Performed By: #### L IPID, MG, GFR, VIDH, CMP, TSH #### [address] [address] #### B12 #### [address] [address] Total Protein 7.1 G/dL Normal 6.4-8.2 [facility] [place] Comment on above: Performed By: #### L IPID, MG, GFR, VIDH, CMP, TSH #### [address] [address] #### B12 #### [address] [address] Urea nitrogen [Mass/Vol] 15 mg/dL Normal 7-18 [facility] [place] Comment on above: Performed By: #### L IPID, MG, GFR, VIDH, CMP, TSH #### [address] [address] #### B12 #### [address] [address] LIPIDon 04-07-2023 Cholesterol [Mass/Vol] 148 mg/dL Normal 0-200 [facility] [place] Comment on above: Result Comment: Chol esterol Reference Interval: Less than 200 Desirable 200-239 Borderline high risk 240 and above High risk Performed By: #### L IPID, MG, GFR, VIDH, CMP, TSH #### [place] [address] #### B12 #### [address] [address] Cholesterol in HDL [Mass/Vol] 54 mg/dL Normal 40-60 [facility] [place] Comment on above: Performed By: #### L IPID, MG, GFR, VIDH, CMP, TSH #### [place] [address] #### B12 #### [place] [address] Cholesterol in LDL [Mass/Vol] 72 mg/dL Normal 0-130 [facility] [place] Comment on above: Performed By: #### L IPID, MG, GFR, VIDH, CMP, TSH #### [place] [address] #### B12 #### [address] [address] Triglyceride [Mass/Vol] 111 mg/dL Normal 0-150 [facility] [place] Comment on above: Result Comment: Trig lyceride Reference Interval: Less than 150 Normal 150-199 Borderline high risk 200-499 High risk 500 or higher Very high risk Performed By: #### L IPID, MG, GFR, VIDH, CMP, TSH #### [place] [address] #### B12 #### [address] [address] MGon 04-07-2023 Magnesium [Mass/Vol] 2.0 mg/dL Normal 1.8-2.4 [facility] [place] Comment on above: Performed By: #### L IPID, MG, GFR, VIDH, CMP, TSH #### [place] [address] #### B12 #### [place] [address] TSHon 04-07-2023 TSH Qn 1.62 m[IU]/L Normal 0.36-3.74 [facility] [place] Comment on above: Performed By: #### L IPID, MG, GFR, VIDH, CMP, TSH #### [place] [address] #### B12 #### [place] [address] VIDHon 04-07-2023 Vit. D 25-Hydroxy 50.3 ng/mL Normal [facility] ([place] Comment on above: Result Comment: Inte rpretive Values Based on Total 25(OH) Vitamin D: Deficient <20 ng/mL Insufficient 20 - <30 ng/mL Sufficient 30-100 ng/mL Performed By: #### L IPID, MG, GFR, VIDH, CMP, TSH #### [place] [address] #### B12 #### [place] [address] LABORATORYOrdered By: [employer] on 03-18-2022 Cobalamin (Vitamin B12) [Mass/Vol] 297 pg/mL Invalid Interpretation Code 211 - 911 pg/mL AH ADM SS LABORATORYOrdered By: Herrera Rutherford on 03-18-2022 Free T3 [Mass/Vol] 2.89 pg/mL Invalid Interpretation Code 2.30 - 4.00 pg/mL AO ADM SS Free T4 [Mass/Vol] 0.98 ng/dL Invalid Interpretation Code 0.76 - 1.46 ng/dL AO ADM SS Magnesium [Mass/Vol] 1.8 mg/dL Invalid Interpretation Code 1.8 - 2.4 mg/dL AO ADM SS LABORATORYOrdered By: Zo guthrie on 03-18-2022 Hep C Ab Non-Reactive (03/18/22 10:11 AM) Invalid Interpretation Code Non-Reactiv e AH ADM SS Hep C Ab Int Nonreactive: Samples with a value < 0.80 are considered nonreactive (negative) for antibodies to HCV.A negative test result does not exclude the possibility of exposure to or infection with HCV. HCV antibodies may be undetectable in some stages of the infection and in some clinical conditions. Invalid Interpretation Code AH Chemistry S CNOVon 11-29-2018 CNOV Office Visit (NEC[facility]8) ----MELANY HOLCOMB ([id number]) 1970 FDate Time Provider Department11/29/18 11:10 AM AURY JEFFERS [facility]8 During your visit today, we recorded the following information about you: Pulse Blood pressure Weight Height 75/minute 117/86 66.5 kg 1.549 Ariel Jeffers APRN.KEG VARNISHER 12/01/2018 2:15 PM SignedCEREBROVASCULAR CENTEROffice Follow-upConsultation is requested by: JORGE DANIEL MD [id number] [facility] [address]YNH: Wilbert Harrison, DO[address] [place], [place] [address]Txqyr: [phone]: [phone] HISTORYHistory of Recent Event: Melany Esqueda Kelseyjose is a 48 year old female who presentsfor evaluation of stroke.Reason for visit: Office follow upDate of last event: 05/23/2013History of event:followup evaluation of R carotid stenosis.s/p stroke (multiple left cerebellar bilateral brainstem infarcts) likely d/tremote L vertebral dissection which recanalizedAntiplatelet, Anticoalulant, Statin: Aspirin (states she has been off LIpitorfor many years, prior to last office visit here) Side effects : Had joint aches from Lipitor in past Refills needed: NoResidual deficits: Hearing loss in left ear, tinnitus, balance andconcentrationPT/OT/ST: No therapy needsDisposition: HomeNext phase of care: Home with spouseInterval history:No new symptoms or concernsHas been off cholesterol medications for many yearsBP has remained < 130/80Non diabeticAugust labs ? LDL 139Questions for visit:How was my US today?PAST MEDICAL HISTORYDiagnosis Date- Carotid artery stenosis, asymptomatic 05/10/2015- CVA (cerebral infarction) 05/23/13 Dr. Gonzalez. Left vertebral a., left cerebellar- Dyslipidemia- Stroke (HCC)PAST SURGICAL HISTORYProcedure Laterality Date- REMOVAL GALLBLADDER 09/23 CholecystectomyFAMILY HISTORYProblem Relation Age of Onset- Diabetes Father- Diabetes Paternal GrandmotherSocial History Marital status: Spouse name: Years of education: Number of children:Social History Main Topics Smoking status: Former Smoker Packs/day: 1.00 Years: 20.00 Types: Cigarettes Quit date: 06/06/2005 Alcohol use: No Drug use: No Sexual activity: Yes Partners with: MaleCurrent Outpatient Prescriptions:aspirin, enteric coated (ECOTRIN LOW STRENGTH) 81 mg EC tablet Take (4) tabletsdailyspironolactone 25 mg tablet Take (2) tablets in the am and (1) tablet in the PMNUEDEXTA 20-10 mg capsule TAKE ONE(1) CAPSULE THREE TIMES DAILY.No current facility-administered medications for this visit.MEDICATIONSCurrent Outpatient Prescriptions:aspirin, enteric coated (ECOTRIN LOW STRENGTH) 81 mg EC tablet Take (4) tabletsdaily Disp: Rfl:spironolactone 25 mg tablet Take (2) tablets in the am and (1) tablet in the PMDisp: Rfl:NUEDEXTA 20-10 mg capsule TAKE ONE(1) CAPSULE THREE TIMES DAILY. Disp: 90capsule Rfl: 5No current facility-administered medications for this visit.REVIEW OF SYSTEMSALLERGIESAllergen Reactions- Demerol [Meperidine* GI Upset- Percocet [Oxycodone* Vomiting- Vicodin [Hydrocodon* VomitingReview of SystemsConstitutional: NegativeCardiovascular: NegativeRespiratory: NegativeHeme/Lymph: NegativeNeurologic: NegativePsychiatric: NegativePatient's Review of Systems has been reviewed with the patient and updated asappropriate.PHYSICAL EXAMINATIONBP 117/86 Pulse 75 Ht 154.9 cm (5' 1) Wt 66.5 kg (146 lb 8 oz) LMP02/05/2012 BMI 27.68 kg/m?General: Well-developed, well-nourished, in no acute distress.HEENT: Normocephalic, atraumatic. Sclerae anicteric. Oropharynx clear.Extremities: No edema, cyanosis, or clubbing. 2+ dorsalis pedis pulsesbilaterally.Skin: No rash or ecchymoses.Neurological: Awake, alert, oriented to person, place, and time. Speech fluent,no dysarthria. Naming, repetition, recall, comprehension, calculation intact.Good attention and insight into illness.Cranial Nerves: PERRL, extraocular movements intact without nystagmus. Visualfields full. Facial sensation and movements normal and symmetric. Palateelevates equal bilaterally. Tongue midline. Trapezius strength 5/5 bilaterally.Motor: Normal bulk and tone. Strength 5/5 throughout. No pronator drift ortremor.Sensation: Intact light touchCoordination: Rapid alternating movements symmetric bilaterally.Tuyepv-ei-hbgu, sxij-vm-yaen without dysmetria bilaterally.Gait: Narrow-based, normal spaced and stable without assistance.LABSCholesterol:C holesterol, Total (mg/dL)Date Value02/27/2014 154 LDL Cholesterol (mg/dL)Date Value02/27/2014 69 HDL Cholesterol (mg/dL)Date Value02/27/2014 44 Triglyceride (mg/dL)Date Value02/27/2014 206 Diabetes:Hemoglobin A1C (%)Date Value02/27/2014 5.7 IMAGINGCUS today:CEREBROVASCULAR CATEGORIES Ischemic Stroke: Large-artery atherosclerosis (embolus/thrombosis)IMPRESSI ON1. R carotid stenosis2. Remote left cerebellar ischemic infarcts3. Hypertension4. HyperlipidemiaPLAN1. Continue aspirin2. Start Crestor and let me know how you tolerate3. Continue healthy diet and exercise4. Follow up regularly with PCP for optimal management of blood pressure,cholesterol, diabetes screening and send us the results.1. Goal BP < 130/802. Goal LDL < 705. Follow up annually with repeat ultrasound and office visit.Discussion, counseling, coordination of care > 50% of 25 minutes.Questions asked/ answered. Follow-up with results/ adherence to plan/ continuededucation.Aury Jeffers APRN.KEG VARNISHER COSTA DANIEL MD [id number] [facility] [address] M Hunter, DO[address] [place], [place] [address]Vidqh: [phone]: [phone] Lally, APRN.KEG VARNISHER 11/29/2018 11:58 AM SignedPLAN1. Continue aspirin2. Start Crestor and let me know how you tolerate3. Continue healthy diet and exercise4. Follow up regularly with PCP for optimal management of blood pressure,cholesterol, diabetes screening and send us the results.1. Goal BP < 130/802. Goal LDL < 705. Follow up annually with repeat ultrasound and office visit.~~~~~~~~~~~~~~~~~~~~~~ ~~~~~~~~~~~~~~~~~~~~~~~~~~~~ ~~~~~~~~~~~~~~~~~~~~~~Stroke Signs and Symptoms:*Stroke is a medical emergency. Know the warning signs of stroke:Sudden numbness or weakness of the face, arm or leg, especially on one side ofthe bodySudden confusion, trouble speaking, or understandingSudden trouble seeing in one eye, or both eyesSudden trouble walking, dizziness, loss of balance, or coordinationSudden severe headache with no known cause*If you, or someone with you, has one or more of these signs, don't delay!Immediately call 911, or the emergency medical services (EMS) number so anambulance can be sent for you. Also, check the time so that you will know whenthe symptoms first appeared. It is very important to take immediate action,every second counts. Medical treatment may be available if action is takenearly enough.~~~~~~~~~~~~~~~~~~~~~ ~~~~~~~~~~~~~~~~~~~~~~~~~~~~ ~~~~~~~~~~~~~~~~~~~~~~~Gener al Guidelines to Help Reduce Risk of Recurrent StrokeBlood Pressure Management:Blood Pressure reduction is recommended for both prevention of recurrent strokeand prevention of other vascular events in persons who have had an ischemicstroke or TIA and are beyond the first 24 hours.Several lifestyle modifications have been associated with BP reduction and area reasonable part of a comprehensive antihypertensive therapy-These modifications include: - salt restriction - weight loss - consumption of a diet rich in fruits, vegetables, and low-fatdairy products - Regular aerobic physical activity - Limited alcohol consumptionGoal:Prehypertens ion (systolic BP of 120-139 mm Hg or diastolic BP of 80-89 mm Hg):Perform annual BP screening and lifestyle modificationsHypertension: Combine medications with above lifestyle modifications to reach your goalblood pressure as defined above.Monitor your blood pressure at home regularly to ensure you are reaching yourgoalsCholesterol and Lipid Management- Statin therapy with intensive lipid-lowering effects is recommended toreduce risk of stroke and cardiovascular events among patients with ischemicstroke or TIA who have evidence of atherosclerosisDiet:- Reduced sodium and increased potassium intake; DASH-style diet rich in fruitsand vegetables- Consider Mediterranean diet supplemented with nutsSmoking and Tobacco Use:- Strongly recommend smoking and tobacco use cessation to reduce risk of stroke.- Counseling, nicotine products, and oral smoking cessation medications areeffective for helping smokers quit and can be provided if needed.Alcohol Consumption:- Heavy drinkers should eliminate or reduce their consumption of alcohol.- Persons who continue drinking the following may be reasonable: - less than or equal to 2 drinks/day for men - less than or equal to 1 drink/day for non womenExercise- If capable of engaging in physical activity, at least 40 minutes of moderateto vigorous intensity physical exercise, typically defined as vigorous activitysufficient to break a sweat or noticeably raise heart rate, 3-4 days a week(eg, walking briskly, using an exercise bicycle) may be considered to reducethe risk factors and comorbid conditions that increase the likelihood ofrecurrent stroke- If disability after ischemic stroke, supervision by a healthcareprofessional, such as a physical therapist or cardiac rehabilitationprofessional, at least on initiation of an exercise regimen, may be considered A dopted from the [place] [employer] Attack : A Guideline forHealthcare Professionals From the [place] [employer] Guidelines for the Preventionof Stroke in Patients With Stroke or Transient Ischemic - 2014Referring Provider: JORGE DANIEL [[id number]]Allergies As of Date: 11/29/2018 Noted Allergy ReactionDEMEROL (MEPERIDINE (PF)) 02/27/2006 8 - GI UpsetPERCOCET (OXYCODONE-ACETAMINOPHEN) 11 - VomitingVICODIN (HYDROCODONE-ACETAMINOPHE* 11 - VomitingDate Reviewed: 11/29/2018Reviewed by: Yasmine Claudio RN - Fully AssessedPrimary Visit Diagnosis:Carotid artery stenosis, asymptomatic [I65.29] Other Visit Diagnoses:H/O ischemic left [employer] ASSISTANT stroke [Z86.73] Mixed hyperlipidemia [E78.2]Order(s):aspirin, enteric coated (ECOTRIN LOW STRENGTH) 81 mg EC tabletTake 1 tablet by mouth once daily.Disp: Rfl: rosuvastatin (CRESTOR) 10 mg tabletTake 1 tablet by mouth daily at bedtime.Disp: 30 tabletRfl: 5 CAROTID BILAT [[id number]] Order #: [id number] FUTUREPrescriptions as of 11/29/2018 Sig: ASPIRIN 81 MG TABLET,DELAYED * Take 1 tablet by mouth once d* SPIRONOLACTONE 25 MG TABLET Take (2) tablets in the am an* ROSUVASTATIN 10 MG TABLET Take 1 tablet by mouth daily * NUEDEXTA 20 MG-10 MG CAPSULE TAKE ONE(1) CAPSULE THREE THEO*Medication notes this encounter NUEDEXTA 20 MG-10 MG CAPSULE >> Yasmine Claudio RN 11/29/2018 11:25 AM >> YASMINE CLAUDIO JULES Mon Nov 29, 2018 11:25 AM Taking once dailyProblem List As Of Date 11/29/2018 Noted Resolved Hyperlipemia [E78.5] INVALID FOR* GERD (gastroesophageal reflux disease) [K21.9] INVALID FOR* PBA (pseudobulbar affect) [F48.2] INVALID FOR* H/O ischemic left CARPENTER'S ASSISTANT stroke [Z86.73] INVALID FOR* Carotid artery stenosis, asymptomatic [I65.29] INVALID FOR* Other instructions from your clinician: PLAN 1. Continue aspirin 2. Start Crestor and let me know how you tolerate 3. Continue healthy diet and exercise 4. Follow up regularly with PCP for optimal management of blood pressure, cholesterol, diabetes screening and send us the results. 1. Goal BP < 130/80 2. Goal LDL < 70 5. Follow up annually with repeat ultrasound and office visit. ~~~~~~~~~~~~~~~~~~~~~~~~~~~~ ~~~~~~~~~~~~~~~~~~~~~~~~~~~~ ~~~~~~~~~~~~~~~~ Stroke Signs and Symptoms: *Stroke is a medical emergency. Know the warning signs of stroke: Sudden numbness or weakness of the face, arm or leg, especially on one side of the body Sudden confusion, trouble speaking, or understanding Sudden trouble seeing in one eye, or both eyes Sudden trouble walking, dizziness, loss of balance, or coordination Sudden severe headache with no known cause *If you, or someone with you, has one or more of these signs, don't delay! Immediately call 911, or the emergency medical services (EMS) number so an ambulance can be sent for you. Also, check the time so that you will know when the symptoms first appeared. It is very important to take immediate action, every second counts. Medical treatment may be available if action is taken early enough. ~~~~~~~~~~~~~~~~~~~~~~~~~~~~ ~~~~~~~~~~~~~~~~~~~~~~~~~~~~ ~~~~~~~~~~~~~~~~ General Guidelines to Help Reduce Risk of Recurrent Stroke Blood Pressure Management: Blood Pressure reduction is recommended for both prevention of recurrent stroke and prevention of other vascular events in persons who have had an ischemic stroke or TIA and are beyond the first 24 hours. Several lifestyle modifications have been associated with BP reduction and are a reasonable part of a comprehensive antihypertensive therapy -These modifications include: - salt restriction - weight loss - consumption of a diet rich in fruits, vegetables, and low-fat dairy products - Regular aerobic physical activity - Limited alcohol consumption Goal: Prehypertension (systolic BP of 120-139 mm Hg or diastolic BP of 80-89 mm Hg): Perform annual BP screening and lifestyle modifications Hypertension: Combine medications with above lifestyle modifications to reach your goal blood pressure as defined above. Monitor your blood pressure at home regularly to ensure you are reaching your goals Cholesterol and Lipid Management - Statin therapy with intensive lipid-lowering effects is recommended to reduce risk of stroke and cardiovascular events among patients with ischemic stroke or TIA who have evidence of atherosclerosis Diet: - Reduced sodium and increased potassium intake; DASH-style diet rich in fruits and vegetables - Consider Mediterranean diet supplemented with nuts Smoking and Tobacco Use: - Strongly recommend smoking and tobacco use cessation to reduce risk of stroke. - Counseling, nicotine products, and oral smoking cessation medications are effective for helping smokers quit and can be provided if needed. Alcohol Consumption: - Heavy drinkers should eliminate or reduce their consumption of alcohol. - Persons who continue drinking the following may be reasonable: - less than or equal to 2 drinks/day for men - less than or equal to 1 drink/day for non women Exercise - If capable of engaging in physical activity, at least 40 minutes of moderate to vigorous intensity physical exercise, typically defined as vigorous activity sufficient to break a sweat or noticeably raise heart rate, 3-4 days a week (eg, walking briskly, using an exercise bicycle) may be considered to reduce the risk factors and comorbid conditions that increase the likelihood of recurrent stroke - If disability after ischemic stroke, supervision by a healthcare professional, such as a physical therapist or cardiac rehabilitation professional, at least on initiation of an exercise regimen, may be considered Adopted from the [place] [employer] Attack : A Guideline for Healthcare Professionals From the [place] [employer] Guidelines for the Prevention of Stroke in Patients With Stroke or Transient Ischemic - 2014Prescriptions ordered this encounter Disp Refills Start End ASPIRIN 81 MG TABLET,DELAYED RELEASE 11/29/2018 Class: Med Update Route: ORAL Sig: Take 1 tablet by mouth once daily. ROSUVASTATIN 10 MG TABLET 30 t* 5 11/29/2018 Route: ORAL Sig: Take 1 tablet by mouth daily at bedtime.Medications Discontinued During This Encounter Tretinoin Microsphere (RETIN-A MICRO* 0 04/19/2014 11/29/2018 Class: Historical Med Route: TOPICAL Sig: Apply to affected area daily at bedtime. Disc: Reason for discontinue is not on file. atorvastatin (LIPITOR) 40 mg tablet 30 t* 2 04/26/2014 11/29/2018 Route: ORAL Sig: Take 1 tablet by mouth daily at bedtime. For cholesterol. Disc: Reason for discontinue is not on file. aspirin, enteric coated (ECOTRIN LOW* 04/19/2014 11/29/2018 Class: Historical Med Sig: Take (4) tablets daily Disc: Reason for discontinue is not on file.Disposition: Return in about 1 year (around 11/29/2019).Follow-up and Disposition History RecordedEncounter Number: [id number] Status:Closed by AURY JEFFERS CNP on 12/01/18 Normal [facility] PROGRESSon 11-29-2018 Protein mass conc HNO ID: [id number] thor: Aury Hawkinsice: (none)Author Type: Nurse PractitionerType: Progress NotesFiled: 12/01/2018 2:15 PMNote Text:CEREBROVASCULAR CENTEROffice Follow-upConsultation is requested by: JORGE DANIEL MD [id number] [facility] [id number]: Wilbert Harrison, DO[address] [place], [place] [address]Qneyj: [phone]: [phone] HISTORYHistory of Recent Event: Melany Holcomb is a 48 year old female whopresents for evaluation of stroke.Reason for visit: Office follow upDate of last event: 05/23/2013History of event:followup evaluation of R carotid stenosis.s/p stroke (multiple left cerebellar bilateral brainstem infarcts) likelyd/t remote L vertebral dissection which recanalizedAntiplatelet, Anticoalulant, Statin: Aspirin (states she has been offLIpitor for many years, prior to last office visit here) Side effects : Had joint aches from Lipitor in past Refills needed: NoResidual deficits: Hearing loss in left ear, tinnitus, balance andconcentrationPT/OT/ST: No therapy needsDisposition: HomeNext phase of care: Home with spouseInterval history:No new symptoms or concernsHas been off cholesterol medications for many yearsBP has remained < 130/80Non diabeticAugust labs ? LDL 139Questions for visit:How was my US today?PAST MEDICAL HISTORYDiagnosis Date- Carotid artery stenosis, asymptomatic 05/10/2015- CVA (cerebral infarction) 05/23/13 Dr. Gonzalez. Left vertebral a., left cerebellar- Dyslipidemia- Stroke (HCC)PAST SURGICAL HISTORYProcedure Laterality Date- REMOVAL GALLBLADDER 09/23 CholecystectomyFAMILY HISTORYProblem Relation Age of Onset- Diabetes Father- Diabetes Paternal GrandmotherSocial History Marital status: Spouse name: Years of education: Number of children:Social History Main Topics Smoking status: Former Smoker Packs/day: 1.00 Years: 20.00 Types: Cigarettes Quit date: 06/06/2005 Alcohol use: No Drug use: No Sexual activity: Yes Partners with: MaleCurrent Outpatient Prescriptions:aspirin, enteric coated (ECOTRIN LOW STRENGTH) 81 mg EC tablet Take (4)tablets dailyspironolactone 25 mg tablet Take (2) tablets in the am and (1) tablet inthe PMNUEDEXTA 20-10 mg capsule TAKE ONE(1) CAPSULE THREE TIMES DAILY.No current facility-administered medications for this visit.MEDICATIONSCurrent Outpatient Prescriptions:aspirin, enteric coated (ECOTRIN LOW STRENGTH) 81 mg EC tablet Take (4)tablets daily Disp: Rfl:spironolactone 25 mg tablet Take (2) tablets in the am and (1) tablet inthe PM Disp: Rfl:NUEDEXTA 20-10 mg capsule TAKE ONE(1) CAPSULE THREE TIMES DAILY. Disp: 90capsule Rfl: 5No current facility-administered medications for this visit.REVIEW OF SYSTEMSALLERGIESAllergen Reactions- Demerol [Meperidine* GI Upset- Percocet [Oxycodone* Vomiting- Vicodin [Hydrocodon* VomitingReview of SystemsConstitutional: NegativeCardiovascular: NegativeRespiratory: NegativeHeme/Lymph: NegativeNeurologic: NegativePsychiatric: NegativePatient's Review of Systems has been reviewed with the patient and updatedas appropriate.PHYSICAL EXAMINATIONBP 117/86 Pulse 75 Ht 154.9 cm (5' 1) Wt 66.5 kg (146 lb 8 oz) LMP 02/05/2012 BMI 27.68 kg/m?General: Well-developed, well-nourished, in no acute distress.HEENT: Normocephalic, atraumatic. Sclerae anicteric. Oropharynx clear.Extremities: No edema, cyanosis, or clubbing. 2+ dorsalis pedis pulsesbilaterally.Skin: No rash or ecchymoses.Neurological: Awake, alert, oriented to person, place, and time. Speechfluent, no dysarthria. Naming, repetition, recall, comprehension,calculation intact. Good attention and insight into illness.Cranial Nerves: PERRL, extraocular movements intact without nystagmus.Visual fraga full. Facial sensation and movements normal and symmetric.Palate elevates equal bilaterally. Tongue midline. Trapezius strength 5/5bilaterally.Motor: Normal bulk and tone. Strength 5/5 throughout. No pronator drift ortremor.Sensation: Intact light touchCoordination: Rapid alternating movements symmetric bilaterally.Etujdf-qt-gmkd, lpzf-wy-akbz without dysmetria bilaterally.Gait: Narrow-based, normal spaced and stable without assistance.LABSCholesterol:C holesterol, Total (mg/dL)Date Value02/27/2014 154 LDL Cholesterol (mg/dL)Date Value02/27/2014 69 HDL Cholesterol (mg/dL)Date Value02/27/2014 44 Triglyceride (mg/dL)Date Value04 206 Diabetes:Hemoglobin A1C (%)Date Value02/27/2014 5.7 IMAGINGCUS today:CEREBROVASCULAR CATEGORIES Ischemic Stroke: Large-artery atherosclerosis (embolus/thrombosis)IMPRESSI ON1. R carotid stenosis2. Remote left cerebellar ischemic infarcts3. Hypertension4. HyperlipidemiaPLAN1. Continue aspirin2. Start Crestor and let me know how you tolerate3. Continue healthy diet and exercise4. Follow up regularly with PCP for optimal management of blood pressure,cholesterol, diabetes screening and send us the results.1. Goal BP < 130/802. Goal LDL < 705. Follow up annually with repeat ultrasound and office visit.Discussion, counseling, coordination of care > 50% of 25 minutes.Questions asked/ answered. Follow-up with results/ adherence to plan/continued education.Aury Jeffers APRN.KEG VARNISHER COSTA DANIEL MD [id number] [facility] [address]Spqngppvickie Harrison, DO[address] [place], [place] [address]Lbrdg: [phone]: [phone] Normal [facility] CAROTID BILon 11-29-2018 Bilirubin.direct mass conc * * *Final Report* * *DATE OF EXAM: Nov 29 2018 11:24AM [facility] - CAROTID ALEXANDRA / REASON: Carotid artery stenosis, asymptomatic * * * * Physician Interpretation * * * * Indication: 48 year-old female with history of CVA, carotid stenosis.Today's examination is compared with prior carotid ultrasound dated 09/04/2016.The carotid ultrasound examination was performed including morales scale, color Doppler, and spectral Doppler imaging.Plaque distribution: There is mild intimal thickening bilaterally. There is calcific shadowing plaque noted at the origin of the right internal carotid artery. There is focal heterogeneous calcific plaque within the proximal left internal carotid artery.ICA Peak Systolic Velocity (cm/sec)Right: 140 Left: 95ICA End Diastolic Velocity (cm/sec)Right: 64 Left: 41CCA Peak Systolic Velocity (cm/sec)Right: 80 Left: 68ECA Peak Systolic Velocity (cm/sec)Right: 92 Left: 81Vertebrals: (cm/sec)Right: 56 antegrade Left: 56 antegradeSubclavians: (cm/sec)Right: 104 Left: 138ICA/CCA Systolic Velocity RatioRight: 1.8 Left: 1.4ICA Stenosis EstimationRight: 30-49% Left: 1-29%Technologist: Hilda Ghosh RVT, RDMSIMPRESSION:Calcific and heterogeneous plaque as described. The grayscale, color Doppler and spectral Doppler waveforms of the proximal right internal carotid artery remain consistent with a 30-49% stenosis by NASCET criteria. The stenosis estimated in the left ICA is 1-29% by NASCET criteria. The vertebral arteries have antegrade flow. The subclavian artery waveforms are unremarkable bilaterally.Liquor Runner : EDMUNDO Transcribe Date/Time: Nov 29 2018 11:30ADictated by : LIN ANN MDThititus examination was interpreted and the report reviewed and electronically signed by: LIN ANN MD on Dec 01 2018 9:07AM [id number] Normal [facility] Lab Report: Lipid Profileon 05-11-2017 Cholesterol in HDL mass conc 47 mg/dL [employer] Work Phone: [phone] Cholesterol in LDL mass conc 124 mg/dL 0-130 [facility] Work Phone: [phone] Cholesterol mass conc 192 mg/dL 200 [facility] Work Phone: [phone] Lipoprotein.pre-bet a mass conc 21 mg/dL 5-40 [facility] Work Phone: [phone] Triglyceride mass conc 105 mg/dL [facility] Work Phone: [phone] Lab Report: Liver Profileon 05-11-2017 Albumin mass conc 4.0 g/dL 3.4-5.0 [employer] Work Phone: [phone] Alkaline phosphatase (ALP) 83 U/L Invalid Interpretation Code 45-117 [employer] Work Phone: [phone] ALP enzyme act/vol (Bld) 83 U/L 45-117 [facility] Work Phone: [phone] ALT enzyme act/vol 30 U/L 12-78 [facility] Work Phone: [phone] AST enzyme act/vol 18 U/L 15-37 [facility] Work Phone: [phone] Bilirubin mass conc 0.20 mg/dL 0.20-1.00 [facility] Work Phone: [phone] Bilirubin.direct mass conc 0.07 mg/dL 0.00-0.30 [facility] Work Phone: [phone] Globulin 3.4 g/dL Invalid Interpretation Code 2.3-3.5 [facility] Work Phone: [phone] Globulin mass conc (S) 3.4 g/dL 2.3-3.5 [facility] Work Phone: [phone] Protein mass conc 7.4 g/dL 6.4-8.2 [facility] Work Phone: [phone] Office Visiton 05-11-2017 Dietary management education, guidance, and counseling (procedure) yes Invalid Interpretation Code [facility] Work Phone: [phone] Documentation of current medications (procedure) Done Invalid Interpretation Code [facility] Work Phone: [phone] Fall risk assessment No [facility] Work Phone: [phone] Protein mass conc Done [facility] Work Phone: [phone] Office Visiton 05-12-2016 Tobacco smoking status NHIS Former smoker [facility] Work Phone: [phone] Tobacco use [facility] Former smoker Invalid Interpretation Code [facility] Work Phone: [phone] Lab Report: Hemoglobin A1con 05-07-2016 Hemoglobin A1c/Hemoglobin.tota l mass fraction (Bld) 5.2 % 4.2-6.3 [facility] Work Phone: [phone] Lab Report: Thyroid Stim Hor angela (TSH)on 05-07-2016 Thyrotropin Qn 2.14 u[iU]/mL 0.358-3.74 [facility] Work Phone: [phone] Clinical Lists Updateon 04-23 Left ventricular Ejection fraction 65 % [facility] Work Phone: [phone] External Other: Preferred Me thod of Contacton 05-02-2015 methcontact secmsg [facility] Work Phone: [phone] Patient's prefered method of contact secmsg Invalid Interpretation Code [facility] Work Phone: [phone] Office Visiton 05-02-2015 cardiac risk group C [facility] Work Phone: [phone] General cardiovascular disease 10Y risk [#] [place] no 2 % [facility] Work Phone: [phone] Office Visiton 04-26-2014 Tobacco smoking status NHIS Never [facility] Work Phone: [phone] Coumadin Management: Coumadi n Managementon 02-15-2014 INR Coag RelTime (PPP) 2.1 {INR} Normal [facility] Work Phone: [phone] INR in blood by coagulation 2.1 {INR} Normal [facility] Work Phone: [phone] Prothrombin time (PT) Coag time (PPP) 24.6 s [facility] Work Phone: [phone]) Lab Report: IPTFon 4 GE use only - for [employer] import when terms are not otherwise specified 24.6 SEC High 11.9-14.4 [facility] Work Phone: [phone] IPTF 24.6 SEC High 11.9-14.4 [facility] Work Phone: [phone]) Lab Report: PTon 01-16-2014 prothrombin time, actual/normal, ratio 21.7 SECONDS High 11.9-14.4 [facility] Work Phone: [phone] PTP 21.7 SECONDS High 11.9-14.4 [facility] Work Phone: [phone] Clinical Lists Update: 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-2013 Anion gap 9 mmol/L Invalid Interpretation Code [facility] Work Phone: [phone] Anion gap molar conc 9 mmol/L [facility] Work Phone: [phone] Chloride molar conc 105 mmol/L [facility] Work Phone: [phone] CO2 30.0 mmol/L Invalid Interpretation Code [facility] Work Phone: [phone] CO2 ppres (BldV) 30.0 mmol/L [employer] Work Phone: 1() Creatinine mass conc 0.9 mg/dL [employer] Work Phone: 1() Erythrocytes (RBC) 4.69 10*6/uL Invalid Interpretation Code [employer] Work Phone: [phone] Glucose 88 mg/dL Invalid Interpretation Code [employer] Work Phone: 1() Glucose mass conc 88 mg/dL [employer] Work Phone: 1() Hematocrit (HCT) 42.1 % Invalid Interpretation Code [employer] Work Phone: [phone]) Hematocrit Volume Fraction (Bld) 42.1 % [employer] Work Phone: 1() Hemoglobin mass conc (Bld) 14.2 g/dL [employer] Work Phone: 1() MCH 30.3 pg Invalid Interpretation Code [employer] Work Phone: 1() MCH Entitic mass (RBC) 30.3 pg [employer] Work Phone: 1() MCV 89.8 fL Invalid Interpretation Code [employer] Work Phone: 1() MCV Entitic volume (RBC) 89.8 fL [employer] Work Phone: 1() Platelets 278 10*3/mm3 Invalid Interpretation Code [facility] Work Phone: 1() Platelets #/vol (Bld) 278 10*3/mm3 [employer] Work Phone: [phone] Potassium molar conc 3.6 mmol/L [employer] Work Phone: 1() RBC #/vol (Bld) 4.69 10*6/uL [employer] Work Phone: 1() Sodium molar conc 144 mmol/L [employer] Work Phone: [phone] Urea nitrogen mass conc 12 mg/dL [employer] Work Phone: [phone] Urea nitrogen/Creatinine mass ratio 13.3 mg/mg [employer] Work Phone: 1) WBC #/vol (Bld) 11.6 10*3/uL High [facility] Work Phone: [phone] WBC (Leukocytes) 11.6 10*3/uL High [facility] Work Phone: [phone] Vital Signs Date Time Vital Sign Value Performing Clinician Shagufta jenkins 05-11-2017 10:26-0400 BMI (Body Mass Index) 28.12 kg/m2 Oli Seo MD [facility] Work Phone: 05-11-2017 10:26-0400 BP Diastolic 64 mm[Hg] Oli Seo MD [facility] Work Phone: 05-11-2017 10:26-0400 BP Systolic 112 mm[Hg] Oli Seo MD [facility] Work Phone: 05-11-2017 10:26-0400 Height 152.4 cm Oli Seo MD [facility] Work Phone: 05-11-2017 10:26-0400 Pulse (Heart Rate) 68 /min [facility] Work Phone: 05-11-2017 10:26-0400 Respiratory Rate 16 /min Oli Seo MD [facility] Work Phone: 05-11-2017 10:26-0400 Weight 65.32 kg Oli Seo MD [facility] Work Phone: 05-12-2016 10:46-0400 BSA (Body Surface Area) 1.62 m2 Oli Seo MD [facility] Work Phone: 07-11-2013 10:15-0400 Height 152.4 cm O[facility] Work Phone: Encounters Encounter Date Encounter Type Care Provider Facility Start: 01-09-2025 End: 01-09-2025 ambulatory WILBERT JAIN DO Facility[facility] Start: 01-09-2025 End: 01-09-2025 Patient encounter procedure WILBERT JAIN DO [facility] Start: 12-14-2024 End: 12-14-2024 ambulatory WILBERT JAIN DO [facility] Start: 12-14-2024 End: 12-14-2024 Patient encounter procedure WILBERT JAIN DO [facility] Start: 10-28-2023 End: 10-29-2023 ambulatory WILBERT JAIN DO Facility:[facility] Start: 04-07-2023 End: 04-08-2023 ambulatory WILBERT JAIN DO Facility:[facility] Start: 09-25-2022 End: 09-29-2022 Outreach Lab WIL[facility]ERT JAIN DO [facility] Start: 08-19-2022 End: 08-19-2022 Patient encounter procedure WILBERT JAIN DO [facility] Start: 06-09-2022 ambulatory Wilbert Jain Facility :[facility] Start: 03-18-2022 End: 03-18-2022 Patient encounter procedure WILBERT JAIN DO [facility] Start: 11-29-2018 End: 12-01-2018 [facility] Procedures Date Procedure Procedure Detail Performing Clinician Start: 05-11-2017 End: 05-11-2017 Dietary management education, guidance, and counseling Oli Seo MD Start: 05-11-2017 End: 05-11-2017 Follow Up Appt 1 year Oli Ramos Start: 05-11-2017 End: 05-11-2017 PFM Oli Seo MD Start: 05-12-2016 End: 05-11-2017 *Hepatic Function Panel Oli Seo MD Start: 05-12-2016 End: 05-11-2017 Lipid panel [AGGREGATE] Oli Seo MD Start: 10-31-2015 End: 05-07-2016 *Hepatic Function Panel Oli Seo MD Start: 10-31-2015 End: 05-07-2016 Lipid panel [AGGREGATE] Oli Seo MD Start: 05-02-2015 End: 05-07-2016 *Hepatic Function Panel Oli Seo MD Start: 05-02-2015 End: 05-03-2015 Documentation of current medications Oli Seo MD Start: 05-02-2015 End: 05-02-2015 Follow Up Appt 1 year Oli Ramos Start: 05-02-2015 End: 05-07-2016 Lipid panel [AGGREGATE] Oli Seo MD Start: 05-02-2015 End: 05-02-2015 PFM Oli Seo MD Start: 06-23-2014 End: 04-30-2015 *Hepatic Function Panel Oli Seo MD Start: 06-23-2014 End: 04-30-2015 Lipid panel [AGGREGATE] Oli Seo MD Start: 04-26-2014 End: 04-30-2015 *Hepatic Function Panel Oli Seo MD Start: 04-26-2014 End: 04-26-2014 Follow Up Appt 1 year Oli Ramos Start: 04-26-2014 End: 04-30-2015 Lipid panel [AGGREGATE] Oli Seo MD Start: 04-26-2014 End: 04-26-2014 PFM Oli Seo MD Start: 01-16-2014 End: 01-16-2014 *Hepatic Function Panel Oli Seo MD Start: 11-03-2013 End: 01-16-2014 *Hepatic Function Panel Oli Seo MD Start: 11-03-2013 End: 01-16-2014 Lipid panel [AGGREGATE] Oli Seo MD Start: 08-18-2013 End: 09-05-2013 Coagulation factor induced.INR assay in platelet poor plasma Oli Seo MD Start: 07-11-2013 End: 07-11-2013 Follow Up Appt 3 months Oli Seo MD Start: 07-11-2013 End: 07-11-2013 PFM Oli Seo MD Start: 11-23-2000 Cholecystectomy WILBERT JAIN DO Plan of Treatment Date Care Activity Detail Author Start: 05-10-2018 End: 05-10-2018 Appointment Appointment [facility] Work Phone: Start: 11-10-2017 End: 05-13-2017 *Hepatic Function Panel *Hepatic Function Panel [facility] Work Phone: Start: 11-10-2017 End: 05-13-2017 Lipid panel [AGGREGATE] *Lipid Profile CC PCP [facility] Work Phone: Start: 05-11-2017 End: 05-11-2017 Appointment Appointment [facility] Work Phone: Start: 05-11-2017 End: 05-11-2017 Follow Up Appt 1 year Follow Up Appt 1 year [facility] Work Phone: Start: 05-11-2017 End: 05-11-2017 PFM PFM [facility] Work Phone: Start: 05-12-2016 End: 05-11-2017 *Hepatic Function Panel *Hepatic Function Panel [facility] Work Phone: Start: 05-12-2016 End: 05-12-2016 Follow Up Appt 1 year Follow Up Appt 1 year [facility] Work Phone: Start: 05-12-2016 End: 05-11-2017 Lipid panel [AGGREGATE] *Lipid Profile CC PCP [facility] Work Phone: Start: 05-12-2016 End: 05-12-2016 PFM PFM [facility] Work Phone: Start: 10-31-2015 End: 05-07-2016 *Hepatic Function Panel *Hepatic Function Panel [facility] Work Phone: Start: 10-31-2015 End: 05-07-2016 Lipid panel [AGGREGATE] *Lipid Profile CC PCP [facility] Work Phone: Start: 05-02-2015 End: 05-07-2016 *Hepatic Function Panel *Hepatic Function Panel [facility] Work Phone: Start: 05-02-2015 End: 05-02-2015 Follow Up Appt 1 year Follow Up Appt 1 year [facility] Work Phone: Start: 05-02-2015 End: 05-07-2016 Lipid panel [AGGREGATE] *Lipid Profile CC PCP [facility] Work Phone: Start: 05-02-2015 End: 05-02-2015 PFM PFM [facility] Work Phone: Start: 06-23-2014 End: 04-30-2015 *Hepatic Function Panel *Hepatic Function Panel [facility] Work Phone: Start: 06-23-2014 End: 04-30-2015 Lipid panel [AGGREGATE] *Lipid Profile CC PCP [facility] Work Phone: Start: 04-26-2014 End: 04-30-2015 *Hepatic Function Panel *Hepatic Function Panel [facility] Work Phone: Start: 04-26-2014 End: 04-26-2014 Follow Up Appt 1 year Follow Up Appt 1 year [facility] Work Phone: Start: 04-26-2014 End: 04-30-2015 Lipid panel [AGGREGATE] *Lipid Profile CC PCP [facility] Work Phone: Start: 04-26-2014 End: 04-26-2014 PFM PFM [facility] Work Phone: Start: 01-16-2014 End: 01-16-2014 *Hepatic Function Panel *Hepatic Function Panel [facility] Work Phone: Start: 11-03-2013 End: 12-13-2013 *Hepatic Function Panel *Hepatic Function Panel [facility] Work Phone: Start: 11-03-2013 End: 11-04-2013 Follow Up Appt 6 months Follow Up Appt 6 months [facility] Work Phone: Start: 11-03-2013 End: 12-13-2013 Lipid panel [AGGREGATE] *Lipid Profile CC PCP [facility] Work Phone: Start: 11-03-2013 End: 11-04-2013 PFM PFM [facility] Work Phone: Start: 08-18-2013 End: 09-05-2013 Coagulation factor induced.INR assay in platelet poor plasma *PT/INR - Standing Order [facility] Work Phone: Start: 07-11-2013 End: 07-11-2013 Follow Up Appt 3 months Follow Up Appt 3 months [facility] Work Phone: Start: 07-11-2013 End: 07-11-2013 PFM PFM [facility] Work Phone: Patient Education [facility] Work Phone: Immunizations Immunization Date Immunization Notes Care Provider Juliann simental 11-30-2024 influenza, injectabl e, quadrivalent, contains preservative; Translations: [Fluarix PF Prefilled Syringe ] WILBERT JAIN DO [facility] 10-08-2023 influenza, injectabl e, quadrivalent, contains preservative; Translations: [Fluarix PF Quadrivalent ] WILBERT CRISTOBAL DO [facility] 09-25-2022 influenza, injectabl e, quadrivalent, contains preservative; Translations: [Fluarix PF Quadrivalent ] WILBERT JAIN DO [facility] 10-04-2021 SARS-CoV-2 mRNA (tozinameran) vaccine WILBERT CRISTOBAL DO [facility] Comment on above: Result Comment: 2020: [id number] 09-18-2021 influenza, injectabl e, quadrivalent, contains preservative; Translations: [Fluarix PF Quadrivalent ] WILBERT JAIN DO [facility] 09-13-2021 SARS-CoV-2 mRNA (tozinameran) vaccine WILBERT ARIZMENDILAY DO [facility] 09-14-2020 influenza, injectabl e, quadrivalent, preservative free; Translations: [Fluarix PF Quadrivalent ] WILBERT JAIN DO [facility] 11-13-2019 zoster vaccine recombinant WILBERTVICKIE JAIN DO [facility] 11-13-2019 zoster vaccine, live WILBERT JAIN DO [facility] Comment on above: Result Comment: [] shingrix (2nd shot) 09-13-2019 zoster vaccine recombinant WILBERT JAIN DO [facility] 09-13-2019 zoster vaccine, live WILBERT JAIN DO [facility] 08-18-2019 influenza virus vaccine, unspecified formulation WILBERT JAIN DO [facility] 08-17-2019 tetanus toxoid, redu claudia diphtheria toxoid, and acellular pertussis vaccine, adsorbed; Translations: [Boostrix (Tdap)] WILBERT JAIN DO [facility] 08-31-2018 influenza virus vaccine, unspecified formulation WILBERT JAIN DO [facility] 09-30-2017 influenza virus vaccine, unspecified formulation WILBERT JAIN DO [facility] 12-24-2015 influenza virus vaccine, unspecified formulation WILBERT JAIN DO [facility] Payers Date Payer Category Payer Unknown [id number] 2022 Self-pay 2021 Unknown [id number] 1970 Unknown [id number] 1969 Unknown [id number] [id number] 1969 Unknown [id number] [id number] [id number] 1969 Unknown [id number] [id number] Unknown [id number] Social History Date Type Detail Facility Start: 09-14-2020 End: 10-08-2023 Tobacco smoking status Ex-smoker (finding) [facility] Sex Assigned At Female [facility] Sexual Orientation [facility] Start: 05-18-2019 Sex Female (finding) [facility] Evaluation + Plan note LaboratoryRadiology Note Date & Type Note Facility Evaluation + Plan note Future Appointments Appointment Date:09/19/2022 11:00:00 AM Scheduled Provider:WILBERT JAIN DO Location:[facility] Appointment Type:PC Wellness Female Future Scheduled TestsThyroid Stimulating Hormone 09/18/21Lipid Profile 09/18/21Vitamin D Level 09/18/21Complete Metabolic Panel 09/18/21MA Mammo Screening Bilateral w/ Cosmo 03/12/22 [facility] Evaluation + Plan note Laboratory Note Date & Type Note Facility Evaluation + Plan note Future Appointments Appointment Date:09/19/2022 11:00:00 AM Scheduled Provider:WILBERT JAIN DO Location:[facility] Appointment Type:PC Wellness Female Future Scheduled TestsThyroid Stimulating Hormone 09/18/21Lipid Profile 09/18/21Vitamin D Level 09/18/21Complete Metabolic Panel 09/18/21 [facility] Evaluation + Plan note Laboratory Note Date & Type Note Facility Evaluation + Plan note Future Appointments Appointment Date:04/07/2023 10:00:00 AM Scheduled Provider:WILBERT JAIN DO Location:[facility] Appointment Type:PC OV Future Scheduled TestsPathology Deputy Treasurer Request 09/25/22 [facility] Evaluation + Plan note Laboratory Note Date & Type Note Facility Evaluation + Plan note Future Appointments Appointment Date:05/03/2025 10:30:00 AM Scheduled Provider:WILBERT JAIN DO Location:[facility] Appointment Type:PC Wellness Annual Future Scheduled TestsThyroid Stimulating Hormone 11/30/24Lipid Profile 11/30/24Vitamin D Level 11/30/24Complete Metabolic Panel 11/30/24 [facility] Evaluation + Plan note Note Date & Type Note Facility Evaluation + Plan note Future Appointments Appointment Date:05/03/2025 10:30:00 AM Scheduled Provider:WILBERT JAIN DO Location:[facility] Appointment Type:PC Wellness Annual [facility] Hospital course Narrative Note Date & Type Note Facility Hospital course Narrative No data available for this section [facility] Hospital Discharge instructions Note Date & Type Note Facility Hospital Discharge instructions No data available for this section [facility] Progress note Note Date & Type Note Facility Progress note No data available for this section [facility] Summary Purpose Family History No Family History Records FoundNo Family History Records FoundNo Family History Records Found No data available for this section No Family History Records Found No data available for this section Advance Directives No Advanced Directives Records FoundNo Advanced Directives Records FoundNo Advanced Directives Records FoundNo Advanced Directives Records Found Additional Source Comments INFORMATION SOURCE (unrecogn ized section and content) DATE CREATED AUTHOR 12/02/2018 [facility] DATE CREATED AUTHOR AUTHOR'S ORGANIZ ATION 11/04/2022 [facility] DATE CREATED AUTHOR AUTHOR'S ORGANIZ ATION 10/31/2023 [facility] ([place]) DATE CREATED AUTHOR AUTHOR'S ORGANIZ ATION 01/10/2025 [facility] Care Team (unrecognized sect ion and content) Personnel Name: WILBERT JIAN DO Address: [address] [place] [address] [facility] [place], [place] [address] Care Team Personnel Name: WILBERT JAIN DO Position: P4 Physician - Primary Care Member Role: Primary Care Physician Address: [address] [place] [address] Telecom: Care Team Related Persons Name: LAUREN HOLCOMB Care Team Personnel Name: WILBERT JAIN DO Position: P4 Physician - Primary Care Member Role: Primary Care Physician Address: [address] [place] [address] Telecom: Care Team Related Persons Name: LAUREN HOLCOMB Care Team (unrecognized sect ion and content) Care Team Personnel Name: WILBERT JAIN DO Position: P4 Physician - Primary Care Med Service: Active Provider Member Role: Primary Care Physician Address: Address: [address] [place] [address] Care Team Related Persons Name: LAUREN HOLCOMB Address: [place] [phone] Care Team Personnel Name: WILBERT JAIN DO Position: P4 Physician - Primary Care Member Role: Primary Care Physician Address: Address: [address] [place] [address] Care Team Related Persons Name: LAUREN HOLCOMB Address: [place] [phone] FOR RECORDS PERTAINING TO PATIENTS WHO ARE OR HAVE BEEN ENROLLED IN A CHEMICAL DEPENDENCY/SUBSTANCEABUSE PROGRAM, SOME INFORMATION MAY BE OMITTED. This clinical summary was aggregated from multiple sources. Caution should be exercised in using it in the provision of clinical care. This summary normalizes information from multiple sources, and as a consequence, information in this document may materially change the coding, format and clinical context of patient data. In addition, data may be omitted in some cases. CLINICAL DECISIONS SHOULD BE BASED ON THE PRIMARY CLINICAL RECORDS. [employer] provides no warranty or guarantee of the accuracy or completeness of information in this document.
--- NOTE | 2025-11-16 04:45 | CT_ITS ---
PROCEDURE: BRAIN/HEAD WITHOUT CONTRAST 11/16/2025 REASON FOR EXAM: SYNCOPE TECHNIQUE: Procedure Code: CTBR Modality: CT Procedure: BRAIN/HEAD WITHOUT CONTRAST Coronal and Sagittal reconstruction series were provided. One or more dose reduction techniques were used (e.g., Automated exposure control, adjustment of the mA and/or kV according to patient size, use of iterative reconstruction technique. RADIATION DOSE SUMMARY: CTDlvol: 44.99 mGy DLP: 796.11 mGycm COMPARISON: None FINDINGS: Brain: No acute hemorrhage, midline shift or mass effect CSF Spaces: Normal Sinuses/Mastoids: Clear at visualized levels Bones: No skull fracture or scalp hematoma CT/Brain/Head without Contrast IMPRESSION: No acute abnormalities Reading Location: [id number]
--- NOTE | 2025-11-16 04:46 | RAD_ITS ---
PROCEDURE: CHEST PA AND LATERAL N/A REASON FOR EXAM: SYNCOPE TECHNIQUE: Procedure Code: RADCXR Modality: DX Procedure: CHEST PA AND LATERAL COMPARISON: None FINDINGS: Hardware: EKG leads overlie the chest Heart: The heart size is normal. Mediastinum: The mediastinal contour is unremarkable. Lungs: The lungs are clear. Bones: The bones are unremarkable. RAD/Chest PA and Lateral IMPRESSION: No acute pulmonary process Reading Location: [id number]
--- NOTE | 2025-11-16 04:46 | EKG12_ITS ---
Test Reason : N/V Blood Pressure : */* mmHG Vent. Rate : 80 BPM Atrial Rate : 80 BPM P-R Int : 170 ms QRS Dur : 86 ms QT Int : 400 ms P-R-T Axes : -23 -12 13 degrees QTcB Int : 461 ms Normal sinus rhythm Normal ECG Confirmed by Prudencio Spivey ([id number]), fan mail editor RADHA CASTELLON ([id number]) on 11/17/2025 8:31:09 AM Referred By: Confirmed By: Prudencio Spivey
--- NOTE | 2025-11-16 04:48 | EX.ED.DYSGE1 ---
HPI History of Present Illness Chief Complaint: Nausea/Vomiting Informant: patient Onset/Context/Timing Onset: Yesterday Context: Gradual Onset Timing: Continuous Quality: Nauseated Location: Generalized Worsened by: Nothing Relieved by: Nothing Narrative Narrative: Patient presents after syncopal episode that occurred today. Patient states she has been having some nausea and vomiting. Patient states her syncopal episode occurred after she vomited tonight. Patient states the nausea and vomiting began yesterday. Patient also admits to some diarrhea. Patient states it is watery. Patient denies any melena or hematochezia. Patient denies any hematemesis or coffee-ground emesis. Patient denies any dysuria, frequency, or hematuria. Patient states nothing makes her nausea better and nothing makes it worse. Patient denies any fevers or chills. [facility] Medical History (Updated 11/16/25 @ 08:[address] Ansno Solis DO) Patent foramen ovale Syncope Cardiac arrhythmia Atrial septal defect Hyperlipidemia CVA (cerebral vascular accident) Home Medications ?Medication ?Instructions ?Recorded ?Last Taken ?Type aspirin 81 mg tablet,delayed 81 mg PO QDAY 05/06/18 Unknown History release dextromethorphan 20 mg-quinidine 1 cap PO Q12H 05/06/18 Unknown History 10 mg capsule (Nuedexta) spironolactone 50 mg tablet 50 mg PO QDAY 05/06/18 Unknown History rosuvastatin 10 mg tablet 10 mg PO DAILY 06/08/19 Unknown History ondansetron 4 mg disintegrating 4 mg PO Q8H PRN PRN Nausea #10 tabs 11/16/25 Unknown Rx tablet Allergy/AdvReac Type Severity Reaction Status Date / Time Opioids - Morphine Analogues AdvReac NEEDS Verified 11/16/25 04:05 (narcotics) FOLLOW-UP Family History Father Diabetes Hypertension Surgical History History of cholecystectomy Social History Smoking Status: Former smoker how long ago did patient quit smokin-12 years ago alcohol intake: current alcohol intake frequency: a few times a week substance use type: does not use caffeine: Yes Type: coffee Number of servings: 5 ROS ROS ED Constitutional Constitutional ED: Denies chills or fever(s) Eyes Eyes: Denies blurry vision or change in vision ENT ENT ED: Denies rhinorrhea or sore throat Cardiovascular Cardiovascular: Denies chest pain or palpitations Respiratory/Chest Respiratory/Chest: Denies cough or dyspnea Gastrointestinal Gastrointestinal: Reports diarrhea, nausea and vomiting Genitourinary Genitourinary ED: Denies dysuria or hematuria Musculoskeletal Musculoskeletal: Reports back pain; Denies neck pain Integumentary Denies abscess or rash Neurologic Neurologic: Reports headache(s); Denies weakness Allergic/Immunologic Allergic/Immunologic ED: Denies mouth swelling or urticaria EXAM Physical Exam Const Vital Signs: 11/16/25 04:04 11/16/25 04:06 11/16/25 04:06 Temperature 97.9 F Temperature Source Oral Pulse Rate 82 Pulse Rate [Lying] Pulse Rate [Sitting (for 1 minute prior to obtaining)] Pulse Rate [Standing (for 1 minute prior to obtaining)] Respiratory Rate 14 Respiratory Effort Normal Non-Labored Normal Non-Labored Respiratory Depth Normal Respiratory Pattern Normal Blood Pressure 109/66 Blood Pressure [Lying] Blood Pressure [Sitting (for 1 minute prior to obtaining)] Blood Pressure [Standing (for 1 minute prior to obtaining)] Blood Pressure Mean 80 Blood Pressure Mean [Lying] Blood Pressure Mean [Sitting (for 1 minute prior to obtaining)] Blood Pressure Mean [Standing (for 1 minute prior to obtaining)] Pulse Ox 97 Oxygen Delivery Method Room Air Room Air 11/16/25 05:12 11/16/25 05:30 11/16/25 06:00 Temperature Temperature Source Pulse Rate 77 83 Pulse Rate [Lying] 79 Pulse Rate [Sitting (for 1 minute prior to obtaining)] 81 Pulse Rate [Standing (for 1 minute prior to obtaining)] 130 H Respiratory Rate 12 13 Respiratory Effort Respiratory Depth Respiratory Pattern Blood Pressure 109/71 94/63 Blood Pressure [Lying] 110/67 Blood Pressure [Sitting (for 1 minute prior to obtaining)] 104/70 Blood Pressure [Standing (for 1 minute prior to obtaining)] 142/123 H Blood Pressure Mean 83 74 Blood Pressure Mean [Lying] 81 Blood Pressure Mean [Sitting (for 1 minute prior to obtaining)] 81 Blood Pressure Mean [Standing (for 1 minute prior to obtaining)] 129 Pulse Ox 97 96 Oxygen Delivery Method Positive well nourished and well developed Constitutional Narrative: BMI is 28.5. General Appearance ED: well developed and NAD HEENT Reports moist mucous membranes Negative for trauma or tenderness Neck supple and no JVD Resp normal respiratory effort and clear to auscultation bilaterally Cardio regular rate and regular rhythm GI non-tender and non-distended Palpation: soft Neuro oriented x3, CN's II-XII intact bilaterally and no sensory deficits noted Sensorium / Orientation: alert Motor Exam: strength 5/5 throughout Psych mental status grossly normal MDM MDM MDM Narrative Medical decision making narrative: Differential diagnosis includes cardiac dysrhythmia, cardiac ischemia, stroke, intracranial bleeding, dehydration, electrolyte abnormality, viral illness, and vasovagal syncope. EKG will be obtained to assess for cardiac dysrhythmia and cardiac ischemia. CT scan of the brain will be obtained to assess for intracranial bleeding and stroke. Chest x-ray will be obtained to assess for pneumonia and bronchitis. COVID-19, influenza, and RSV PCR will be obtained to assess for viral illness. CBC will be obtained to assess for leukocytosis and anemia. Comprehensive metabolic profile will be obtained to assess for hepatic function, renal function, and electrolyte abnormality. Urinalysis will be obtained to assess for urinary tract infection and hematuria. Lipase will be obtained to assess for pancreatitis. High-sensitivity troponin will be obtained to assess for cardiac ischemia. 2-hour repeat high-sensitivity troponin will be obtained to assess for ongoing cardiac ischemia. Orthostatic vital signs will be obtained to assess for hypovolemia and dehydration. Lab Data Attestation: I reviewed the patient's lab results. Lab results narrative: CBC was reviewed and was within normal limits. Comprehensive metabolic profile was reviewed. Glucose was slightly elevated 144. The remainder is within normal limits. Initial high-sensitivity troponin was reviewed and was less than 6. Lipase was reviewed and was normal at 34. Urinalysis was reviewed. There is no evidence of urinary tract infection or hematuria. 2-hour repeat high-sensitivity troponin was reviewed and was less than 6. COVID-19 PCR was reviewed and was negative. Influenza PCR was reviewed and was negative for influenza A and influenza B. RSV PCR was reviewed and was negative. Labs: Laboratory Results - last 24 hr 11/16/25 11/16/25 11/16/25 05:00 06:55 07:25 WBC 10.9 RBC 4.99 Hgb 14.9 Hct 45.6 MCV 91.4 MCH 29.9 MCHC 32.7 RDW Std Deviation 41.0 RDW Coeff of Luisa 12.2 Plt Count 261 MPV 9.9 Immature Gran % (Auto) 0.600 Neut % (Auto) 86.9 H Lymph % (Auto) 6.3 L Webster % (Auto) 4.9 Eos % (Auto) 0.9 Baso % (Auto) 0.4 Absolute Neuts (auto) 9.5 H Absolute Lymphs (auto) 0.69 L Nucleated RBC % 0 Sodium 136 Potassium 3.8 Chloride 105 Carbon Dioxide 19.5 L Anion Gap 12 BUN 11 Creatinine 0.86 Estim Creat Clear Calc 64.57 Est GFR (MDRD) Non-Af 79 BUN/Creatinine Ratio 12.3 Glucose 144 H Calcium 9.2 Total Bilirubin 0.52 AST 27 ALT 29 Alkaline Phosphatase 90 Troponin T High Sens < 6 Troponin T Hi Sens 2 Hr < 6 Total Protein 7.2 Albumin 4.4 Globulin 2.8 Albumin/Globulin Ratio 1.6 Lipase 34 Urine Color Yellow Urine Clarity Clear Urine pH 6.0 Ur Specific Byram 1.015 Urine Protein 30 H Urine Glucose (UA) Normal Urine Ketones 15 H Urine Occult Blood 10 H Urine Nitrite Negative Urine Bilirubin Negative Urine Urobilinogen Normal Ur Leukocyte Esterase Negative Urine RBC 0 SEEN Urine WBC 0 SEEN Ur Squamous Epith Cells 0 SEEN Urine Bacteria 0 SEEN Urine Mucus 0 SEEN Radiography Chest X-Ray - ED: 2 View, Read by ED Physician, Read by Radiologist and No Acute Disease Diagnostic Testing: Clinical Impression(s) from Imaging Studies Brain CT 11/16/25 04:45 IMPRESSION: No acute abnormalities Reading Location: [facility] Chest X-Ray 11/16/25 04:46 IMPRESSION: No acute pulmonary process Reading Location: [facility] CT scan of the brain was obtained. There is no acute intracranial abnormality. This was interpreted by the radiologist. I also independently reviewed the images and did not see any evidence of intracranial bleeding or stroke. PA and lateral chest x-ray was obtained. There are 2 views. On my independent interpretation, lung fraga are clear. There is normal cardiac silhouette. Bony thorax is normal. There is no acute process noted. Radiologist also interpreted the x-ray and agrees. EKG Initial EKG: Attestation: I personally reviewed and interpreted this EKG as follows: Interpretation: Sinus Rhythm (80) and No Acute Injury Pattern Comments: EKG was obtained. On my independent interpretation, it showed a normal sinus rhythm with a rate of 80. [place] interval, QRS interval, and QTc intervals were all normal. There is borderline left axis deviation at -12. There are no acute ST or T wave changes. Prior: Unchanged (05/28/2013) Treatment and Re-Evaluation :: Orthostatic vital signs were obtained. Patient's heart rate went up to 130 with standing. Otherwise there was no significant change in blood pressure or heart rate. Patient was given IV fluids. Patient was feeling better on reevaluation. Patient was given a prescription for Zofran. Patient was instructed to start with a liquid diet and advance as tolerated. Patient was instructed to follow-up with her primary care physician in 5 to 7 days. Patient understood and was agreeable with the plan. All questions were answered. Discharge Plan Triage Chief Complaint: Nausea/Vomiting Other Complaint: Fall Syncope ED Provider: Anson Solis Dx/Rx/DC Orders Clinical Impression: Syncope and collapse, Nausea and vomiting Instructions: ED Fainting, Uncertain Cause, ED Vomiting (Adult) Prescriptions: New ondansetron 4 mg tablet,disintegrating 4 mg PO Q8H PRN PRN (Reason: Nausea) Qty: 10 0RF No Action spironolactone 50 mg tablet 50 mg PO QDAY aspirin 81 mg tablet,delayed release (DR/EC) 81 mg PO QDAY dextromethorphan-quinidine [Nuedexta] 20-10 mg capsule 1 cap PO Q12H rosuvastatin 10 mg tablet 10 mg PO DAILY Primary Care Provider: Skye Bruner Referrals: Skye Bruner DO [Primary Care Provider, Medical] - 5-7 Days Print Language: Algerian Disposition Disposition: Home, Self Care
[2025-11-16 05:11] LABS: Hematocrit 45.6 % (37-47); Hemoglobin 14.9 g/dL (12.0-15.0); Immature Granulocytes Count 0.060 X10^3/uL (0.0-0.0); Mean Corp Hgb Conc 32.7 g/dL (32-36); Mean Corpuscular Volume 91.4 fL (81-99); Mean Platelet Vol. 9.9 fl (6.2-12.0); NRBC Flagged by Analyzer 0 % (0-5); Platelet Count 261 K/mm3 (150-450); RBC Distribution Width CV 12.2 % (11.6-14.6); RBC Distribution Width SD 41.0 fl (35.1-43.9); Red Blood Count 4.99 M/mm3 (4.2-5.4); White Blood Count 10.9 K/mm3 (4.4-11.0)
[2025-11-16 05:12] VITALS: BP 104/70; BP 110/67; BP 142/123; PULSE 130; PULSE 79; PULSE 81
[2025-11-16 05:26] LABS: AST(SGOT) 27 U/L (<=31); Alanine Aminotransfer ALT/SGPT 29 U/L (<=34); Albumin, Serum 4.4 g/dL (3.5-5.0); Alkaline Phosphatase 90 U/L (35-104); Anion Gap 12 (7-18); BUN 11 mg/dL (4-19); BUN/Creat Ratio 12.3 RATIO (10-20); Calcium,Total 9.2 mg/dL (7.6-11.0); Carbon Dioxide 19.5 mmol/L (20.0-29.0); Chloride 105 mmol/L (96-106); Estimated Creatinine Clearance 64.57 ml/min (50-250); Globulin 2.8 g/dL (2.2-4.2); Glucose 144 mg/dL (70-99); Lipase 34 U/L (13-75); Potassium 3.8 mmol/L (3.5-5.1)
[2025-11-16 05:30] VITALS: BP 109/71; PULSE 77; RESP 12; O2SAT 97
[2025-11-16 05:39] LABS: Troponin T High Sensitivity < 6 ng/L (<=14)
[2025-11-16] MEDS: 0.9% Normal Saline (1000mL) 1,000 ML 1000 ML IV (05:47)
[2025-11-16 06:00] VITALS: BP 94/63; PULSE 83; RESP 13; O2SAT 96
[2025-11-16 07:37] LABS: Mucous, Urine 0 SEEN /hpf (<or=2+); Red Blood Cells-Urine 0 SEEN /hpf (0-5); Squamous Epithelial Cells - UA 0 SEEN /hpf (5-10)
[2025-11-16 07:40] LABS: Troponin T High Sens 2 HR < 6 ng/L (<=14)
[2025-11-16 07:42] LABS: Color, Urine Yellow (Yellow); Glucose, Dipstick Normal (Normal); Ketone-Dipstick 15 mg/dl (Negative); Leukocyte Esterase-Dipstick Negative /ul (Negative); Nitrite-Dipstick Negative (Negative); Occult Blood-Urine 10 /ul (Negative); Protein-Dipstick 30 mg/dl (Negative); Specific Gravity, Urine 1.015 (1.002-1.030); Urine Bilirubin Dipstick Negative (Negative)
[2025-11-16 08:03] VITALS: BP 99/64; PULSE 80; RESP 14; TEMP 36.6; O2SAT 98
[2025-11-16 08:09] VITALS: BP 99/64; PULSE 80; RESP 14; TEMP 36.6; O2SAT 98
== END 2025-11-16 08:09 | disposition home or self-care (01) ==
PROVIDERS: Emergency Provider Emergency Medicine; PCP Family Medicine; Visit Provider Emergency Medicine
DX: R11.2 Nausea with vomiting, unspecified (principal); R55 Syncope and collapse; E78.5 Hyperlipidemia, unspecified; Z87.891 Personal history of nicotine dependence; Z86.73 Personal history of transient ischemic attack (TIA), and cerebral infarction without residual deficits; Z79.899 Other long term (current) drug therapy; Z90.49 Acquired absence of other specified parts of digestive tract
CPT/HCPCS: 70450; 71046; 80053; 81001; 83690; 84484; 85025; 87631; 93005; 96361; 96374; 99285; A4216; J2405